=== PATIENT | female | born 1970 | race Caucasian/White ===

== ENCOUNTER 2023-01-23 10:43 | Emergency (ER) | payer OTHER, MEDICARE, SELFPAY ==
--- NOTE | ~2023-01-23 | XR_ITS ---
XR ankle RT min 3V 01/23/2023 11:24 INDICATION: Right ankle pain PROCEDURE: 4 views right ankle COMPARISON: No prior studies for comparison. FINDINGS: Fracture, dislocation or subluxation is not identified. Ankle mortise intact. The soft tiss ues appear within normal limits. No foreign bodies are identified. IMPRESSION: 1: NO ACUTE BONE OR JOINT ABNORMALITY IDENTIFIED. Reviewed, dictated and finalized at location B.
--- NOTE | ~2023-01-23 | XR_ITS ---
XR foot RT min 3V 01/23/2023 11:24 INDICATION: Right foot pain after recent trauma PROCEDURE: 4 views right foot COMPARISON: No prior studies for comparison. FINDINGS: Fracture, dislocation or subluxation is not identified. 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 Lisfranc joint intact. The soft tissues appear within normal limits. No foreign bodies are identified. IMPRESSION: 1: NO ACUTE BONE OR JOINT ABNORMALITY IDENTIFIED. Reviewed, dictated and finalized at location B.
--- NOTE | 2023-01-23 10:57 | ED.LOWEXIN ---
HPI - Extremity Injury (Lower) General Chief Complaint: Extremity Injury, Lower Stated Complaint: right ankle injury Source: patient and RN notes reviewed History of Present Illness HPI Narrative: 52 yo F presents to urgent care with complaints of right ankle pain and right foot pain. Pt states yesterday, she rolled her ankle. Denies any fall during this incident. Pt also reports pain radiating up to her knee and right lateral knee. Pt reports hx of neuropathy and denies any new or worsening numbness or tingling. Pt has been taking her [place] at home with minimal relief. Related Data Home Medications Medication Instructions Recorded Confirmed alprazolam 1 mg tablet mg 01/23/23 atorvastatin 10 mg tablet mg 01/23/23 desvenlafaxine succinate 100 mg mg PO 01/23/23 tablet,extended release 24 hr ezetimibe 10 mg tablet mg 01/23/23 hydrocodone 10 mg-acetaminophen tablet 01/23/23 325 mg tablet zolpidem 6.25 mg tablet,extended mg PO 01/23/23 release,multiphase Allergies Allergy/AdvReac Type Severity Reaction Status Date / Time No Known Allergies Allergy Verified 01/23/23 11:01 Review of Systems Review of Systems: CONSTITUTIONAL: Denies fever, chills, or sweats. EYES: Denies visual changes, redness, or discharge. ENT: Denies otalgia and sore throat CARDIOVASCULAR: Denies chest pain, palpitations, or edema. RESPIRATORY: Denies cough or dyspnea. GASTROINTESTINAL: Denies abdominal pain, nausea, vomiting, or diarrhea. GENITOURINARY: Denies dysuria or hematuria. SKIN: Denies rash or itching. MUSCULOSKELETAL: Right ankle and knee pain NEUROLOGIC: Denies headache, numbness, or weakness. Pertinent positives per HPI. PMF[facility] Comments At the time of my signature, I reviewed and agree with the nursing past medical, surgical, social, and family history. There is no relevant family history pertinent to the patient complaint. Exam Narrative: GENERAL: This is a well-nourished, well-developed patient, in no apparent distress. HEAD: normocephalic, atraumatic. EYES: Sclera clear/white. Vision is grossly intact. EARS: External ears normal, auditory canals clear and without drainage. Hearing grossly intact. NOSE: External nose normal with no obvious nasal discharge, nares without redness, no rhinorrhea. THROAT: Mucous membranes moist, posterior pharynx clear. NECK: Neck supple, non-tender without lymphadenopathy, masses or thyromegaly. CARDIOVASCULAR: Regular rate RESPIRATORY: No respiratory distress SKIN: warm, intact with no suspicious lesions or rash, good texture and turgor. NEURO: awake, alert, and oriented to person, place and time. There were no obvious focal neurologic abnormalities. EXTREMITIES: Edema to right lateral ankle. Tenderness to right lateral ankle and right plantar, mid foot. BACK: Nontender without deformity or crepitance. No flank tenderness. Course Course Level of Care: Express Care Visit Vital Signs Vital signs: Vital Signs Temperature 97.6 F 01/23/23 11:00 Pulse Rate 85 01/23/23 11:00 Respiratory Rate 20 01/23/23 11:00 Blood Pressure 127/86 01/23/23 11:00 Pulse Oximetry 96 01/23/23 11:00 Oxygen Delivery Room Air 01/23/23 11:00 Temperature 97.6 F 01/23/23 11:00 Pulse Rate 85 01/23/23 11:00 Respiratory Rate 20 01/23/23 11:00 Blood Pressure 127/86 01/23/23 11:00 Pulse Oximetry 96 01/23/23 11:00 Oxygen Delivery Room Air 01/23/23 11:00 Reviewed MDM - Extremity Injury (Lower) MDM Narrative Medical decision making narrative: Use the RICE method at home. May take ibuprofen and/or Tylenol if needed. If symptoms persist in 1 week after conservative treatment, follow-up with specialist. Differential Diagnosis Differential diagnosis: Likely ankle sprain and strain, ankle fracture and other (Foot fracture) Imaging Data Radiologist's impression: [facility] [address] [place] [address] XRay Report Sign
[2023-01-23 11:00] VITALS: BP 127/86; PULSE 85; RESP 20; TEMP 36.4; O2SAT 96
== END 2023-01-23 11:50 | disposition home or self-care (01) ==
PROVIDERS: Emergency Provider Nurse Practitioner Family
DX: S93.401A Sprain of unspecified ligament of right ankle, initial encounter (principal); S96.911A Strain of unspecified muscle and tendon at ankle and foot level, right foot, initial encounter; X50.9XXA Other and unspecified overexertion or strenuous movements or postures, initial encounter; E78.00 Pure hypercholesterolemia, unspecified
CPT/HCPCS: 73610; 73630; 99213; G0463

== ENCOUNTER 2023-08-11 10:24 | Emergency (ER) | payer OTHER, MEDICARE, SELFPAY ==
[2023-08-11 10:34] VITALS: BP 116/87; PULSE 88; RESP 16; TEMP 36.6; O2SAT 97
--- NOTE | 2023-08-11 10:44 | ED.URI ---
HPI - URI/Sore Throat General Chief Complaint: Upper Respiratory Infection Stated Complaint: Chest Congestion Time Seen by Provider: 08/11/23 10:35 Source: patient Mode of arrival: ambulatory Limitations: no limitations History of Present Illness HPI Narrative: Moraima is a 53-year-old female patient presenting to the clinic today with complaints chest congestion x5 days. She reports that she has also had some nasal congestion. Denies any fever or chills. Is coughing up some green phlegm. States she is short of breath at times MD elicited complaint: sore throat and nasal congestion Related Data Home Medications Medication Instructions Recorded Confirmed atorvastatin 10 mg tablet 10 mg DIRECTED 01/23/23 08/11/23 ezetimibe 10 mg tablet 10 mg DIRECTED 01/23/23 08/11/23 hydrocodone 10 mg-acetaminophen 1 tablet DIRECTED 01/23/23 08/11/23 325 mg tablet Allergies Allergy/AdvReac Type Severity Reaction Status Date / Time No Known Allergies Allergy Verified 01/23/23 11:01 Review of Systems Review of Systems: Pertinent positives per HPI. Patient denies any fever, chills, rash, headache, visual changes, dizziness, chest pain, palpitations, nausea, vomiting, diarrhea, constipation, abdominal pain, or any urinary issues. [facility] Comments At the time of my signature, I reviewed and agree with the nursing past medical, surgical, social, and family history. There is no relevant family history pertinent to the patient complaint. Exam Narrative: General: Well-developed obese, in no apparent distress Head: Normocephalic, atraumatic Eyes: Pupils equally round and reactive to light bilaterally, EOM intact, sclera and conjunctive clear, no discharge, lids normal Ears: TMs intact and congested, fluid noted behind the left TM, ear canals clear, no drainage, grossly hearing normal. Nose: Nares patent, clear nasal discharge, mild inflammation, no sinus tenderness. Mouth: Oral pharynx without lesions or masses, good dentition, MMM. Neck: Supple, trachea midline, no enlargement of anterior or posterior cervical nodes, no thyroid masses or goiter palpable. Cardio: Regular rate and rhythm, s1 and s2 normal, no murmur appreciated. Resp: Clear to auscultation bilaterally, no rhonchi, rales, wheezing or rubs Course Course Emergency Course: Portions of this record may have been created with voice recognition software. Level of Care: Express Care Visit Vital Signs Vital signs: Vital Signs Temperature 36.6 C 08/11/23 10:34 Pulse Rate 88 08/11/23 10:34 Respiratory Rate 16 08/11/23 10:34 Blood Pressure 116/87 08/11/23 10:34 Pulse Oximetry 97 08/11/23 10:34 Oxygen Delivery Room Air 08/11/23 10:34 Temperature 36.6 C 08/11/23 10:34 Pulse Rate 88 08/11/23 10:34 Respiratory Rate 16 08/11/23 10:34 Blood Pressure 116/87 08/11/23 10:34 Pulse Oximetry 97 08/11/23 10:34 Oxygen Delivery Room Air 08/11/23 10:34 Vital signs reviewed MDM - URI/Sore Throat MDM Narrative Medical decision making narrative: At the time of visit patient is resting comfortably on the exam table. Patient is nontoxic appearing. i suspect patient has URI with serous otitis of the left ear. Prescription for prednisone was sent to the pharmacy and supportive measures were discussed with the patient she voiced understanding of the discharge instructions and agrees to treatment plan. Return precautions reviewed Differential Diagnosis Differential diagnosis: Likely upper respiratory infection, otitis media, sinusitis, viral infection, bronchitis, influenza, pharyngitis and other (COVID) Discharge Plan Discharge Clinical Impression: Upper respiratory infection, Left acute serous otitis media Patient Disposition: Home, Self-Care Condition: Stable Instructions: Antibiotic Form, Upper Respiratory Infection (ED), Fluid In The Ear (Serous Otitis Media) (ED) Additional Instructions: Take prescrip
== END 2023-08-11 10:56 | disposition home or self-care (01) ==
PROVIDERS: Emergency Provider Nurse Practitioner Family
DX: J02.9 Acute pharyngitis, unspecified (principal); H65.02 Acute serous otitis media, left ear; E78.00 Pure hypercholesterolemia, unspecified
CPT/HCPCS: 99213; G0463

== ENCOUNTER 2024-11-05 12:15 | Outpatient (CLI) | payer OTHER, MEDICARE, SELFPAY ==
--- NOTE | ~2024-11-05 | XR_ITS ---
EXAM: XR lumbar spine 2-3V DATE: 11/05/2024 12:37 HISTORY: M47.816 - Spondylosis without myelopathy or radiculopathy... . COMPARISON: None available. FINDINGS: 5 nonrib-bearing lumbar-type vertebral bodies. Uncomplicated appearing L4-5 posterior fusi on hardware, interbody device in good position. Pedicles intact. 2 mm retrolisthesis at L3-4. Mild sc oliosis. Vertebral body heights preserved. Moderate disc space narrowing and marginal osteophytosis a t L1-2 through L3-4, with mild disc disease at L5-S1. Moderate mid and lower lumbar facet hypertrophy and sclerosis. Apparent diffusion or heterotopic bone laterally between the L4-5 transverse process/ facet. No fracture or dislocation. Atherosclerotic aortic and iliac calcifications without evident an eurysm. Incidental note of mild anterior wedge deformity at T11 and T12. IMPRESSION: L4-5 posterior fusion without radiographic evidence of hardware related complication. Moderate multil evel lumbar degenerative disc disease. Moderate multilevel lumbar facet arthropathy. Mild anterior wedge deformity at T11 and T12. Reviewed, dictated and finalized at location [facility] IMPRESSION: L4-5 posterior fusion without radiographic evidence of hardware related complic ation. Moderate multilevel lumbar degenerative disc disease. Moderate multileve l lumbar facet arthropathy. Mild anterior wedge deformity at T11 and T12.
--- OUTSIDE RECORDS SUMMARY | 2024-11-05 14:03 | XMS_ITS | Encounter Summary ---
Author Organization [facility] Health Address [address] [place], [place] [address] [address] Care Team Providers Care Loom Tuner Name Role Phone Cortney Hedrick MD Unavailable Wilmer Li MD Primary Care Provider [phone] Kristi Marvin RN Unavailable [phone] Encounter Details Date Type Department Care Team (Late st Contact Info) Description 09/28/2015 Therapy Visit EXTERNAL NON-[facility] DEPT Unknown, Provider Social History Tobacco Use Types Packs/Day Years Used Date Smoking Tobacco: Former Cigarettes Q uit: 03/11/2011 Smokeless Tobacco: Never Alcohol Use Standard Drinks/Week Comments Yes 2.5 (1 standard drin k = 0.6 oz pure alcohol) mixed drinks approx. 3 per week Sex and Gender Information Value Date Recorded Sex Assigned at Not on file Gender Identity Not on file Sexual Orientation Not on file documented as of this encounter Plan of Treatment Not on file documented as of this encounter Visit Diagnoses Not on filedocumented in this encounter Care Teams Loom Tuner Relationship Specialty Start Date End Date Wilmer Li MD [address] [address] PCP - General Internal Medicine 06/06/12 Cortney Hedrick MD Orthopedic Surgery 06/06/12 Kristi Marvin RN Technology Coordinator 2/17/16 documented as of this encounter
--- OUTSIDE RECORDS SUMMARY | 2024-11-05 14:03 | XMS_ITS | Clinical Summary ---
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 Region Laterality Modality Other Narrative Procedure Note Rudi Morales DO - 09/24/2024 10:11 AM CST [facility] Patient Name: Betzy Briceño Procedure Date: 09/24/2024 10:11 AM Date of : 1970 Admit Type: Outpatient Age: 54 Gender: Female Attending MD: Rudi Morales D.O. Room: [facility] ENDOSCOPY ROOM 2 Note Status: Finalized Patient Profile: Refer to note in patient chart for documentation of history and physical. Procedure: Colonoscopy Indications: Screening for colorectal malignant neoplasm, Last colonoscopy: February 2014 Referring MD: Katrina Sy, F.N.P. Providers: Rudi Morales D.O. Impression: - The examined portion of the ileum was normal. - One 8 mm polyp in the cecum, removed with a hot snare. Resected and retrieved. Clip (MRconditional) was placed. Clip medical laboratory technicians: [place]. - One 3 mm polyp in the descending colon, removedwith a jumbo cold forceps. Resected and retrieved. - Two 2 to 3 mm polyps in the sigmoid colon,removed with a jumbo cold forceps. Resected andretrieved. Recommendation: - Discharge patient to home. - Resume previous diet. - Continue present medications. - Await pathology results. - Repeat colonoscopy in 5 years for surveillance. - Return to primary care physician PRN. Medicines: Monitored Anesthesia Care Complications: No immediate complications. Estimated Blood Loss: Estimated blood loss was minimal. Procedure: Pre-Anesthesia Assessment: - As per anesthesia. The benefits, risks and alternatives of theprocedure and sedation were discussed and informed consentwas obtained. All questions were answered. Please referto the signed informed consent document in the medical record. The bowel preparation used was Miralax and bisacodyl tablets via split dose instruction. The scope was passed under direct vision. The Pediatric Colonoscope [id number] was introducedthrough the anus and advanced to the 5 cm into the ileum.The colonoscopy was performed without difficulty. The patient tolerated the procedure well. The qualityof the bowel preparation was good. The terminal ileum, ileocecal valve, appendiceal orifice, and rectumwere photographed. Findings: The perianal and digital rectal examinations were normal. The terminal ileum appeared normal. An 8 mm polyp was found in the cecum. The polyp was pedunculated. The polyp was removed with a hot snare. Resection and retrieval were complete. To prevent bleeding after the polypectomy, one hemostaticclip was successfully placed (MR conditional). Clip medical laboratory technicians: [place]. There was no bleeding at the end of the procedure. A 3 mm polyp was found in the descending colon. The polyp was removed with a jumbo cold forceps. Resection and retrieval were complete. Two polyps were found in the sigmoid colon. The polyps were 2 to 3 mmin size. These polyps were removed with a jumbo cold forceps. Resectionand retrieval were complete. No additional abnormalities were found on retroflexion. Electronically signed by Rudi Morales M.D. Rudi Morales D.O. 09/24/2024 12:25:29 PM Number of Addenda: 0 Note Initiated On: 09/24/2024 10:11 AM Procedure Code(s): --- Professional --- 90225, Colonoscopy, flexible; with removal of tumor(s), polyp(s), or other lesion(s) by snare technique 27954, 59, Colonoscopy, flexible; with biopsy, single or multiple --- Technical --- 50845, Colonoscopy, flexible; with removal of tumor(s), polyp(s), or other lesion(s) by snare technique 79389, 59, Colonoscopy, flexible; with biopsy, single or multiple Diagnosis Code(s): --- Professional --- Z12.11, Encounter for screening for malignant neoplasm of colon D12.0, Benign neoplasm of cecum D12.4, Benign neoplasm of descending colon D12.5, Benign neoplasm of sigmoid colon --- Technical --- Z12.11, Encounter for screening for malignant neoplasm of colon D12.0, Benign neoplasm of cecum D12.4, Benign neoplasm of descending colon D12.5, Benign neoplasm of sigmoid colon CPT copyright 2020 [employer]. All rights reserved. The codes documented in this report are preliminary and upon cpc coder reviewmay be revised to meet current compliance requirements. Recognized by the [employer] for promoting quality in endoscopy Rudi Morales DO ENDOSCOPY PROCEDURES Final Res ult * Hepatitis C antibody Blood (01/01/2024 12:02 PM CDT) Hep C Ab Nonreactive Nonreactive Comment: Interpretive Data Nonreactive: Antibodies to HCV not detected. Does NOT exclude the possibility of recent exposure to HCV. Equivocal: Equivocal for HCV antibodies. Supplemental molecular testing will be automatically performed to determine infection status in accordance with current CDC screening recommendations. Reactive: Positive for HCV antibodies. This may represent current or past HCV infection. Supplemental molecular testing will be automatically performed to determine current infection status in accordance with current CDC screening recommendations. Interpretive data was last revised on 2019. Blood 01/01/2024 12:0 2 PM CDT 01/01/2024 5:29 PM CDT Maritza Ortega MD LAB MICROBIOLOGY - GENERA L ORDERABLES Final Result [facility] [address] [place] [address] * CT Lung Cancer Screening (08/17/2022 3:19 PM LION TRAINER) Anatomical Region Laterality Modality Chest N/A Computed Tomogra phy 08/18/2022 7:26 AM LION TRAINER Narrative 08/18/2022 7:44 AM LION TRAINER EXAM DESCRIPTION: CT LUNG CANCER SCREENING REASON FOR STUDY: Screening CT of the chest in a former smoker with a 30 pack year smoking history. Additional history: Smoking cessation 4 years ago. Family history of lung cancer. TECHNIQUE: Low dose CT scan of the chest was performed without intravenous contrast using helical scanning technique. The exam extends from the lung apices through the lung bases. Automatic exposure control was used as a dose optimization technique. NOTE: This study was performed for the specific purposes of lung cancer screening and is not an alternative to diagnostic chest CT. RADIATION DOSE: CT dose index volume (CTDIvol) = 2.10 mGy COMPARISON: None available. FINDINGS: SMOKING RELATED LUNG DISEASE: There is mild centrilobular emphysema. LUNG NODULES: There is a 3 mm nodule in the right upper lobe near the apex on axial image 51. A 5 mm nodule is seen in the periphery of the right lower lobe on image 160. No other lung nodules identified. OTHER: There is no focal consolidation. The airways are widely patent. No pleural effusion or pneumothorax. No suspicious lymphadenopathy is seen in the chest. No mediastinal masses. The heart size is normal. No calcified plaques are definitely seen in the coronary arteries on this low-dose exam. There is no pericardial thickening or effusion. The thoracic aorta is minimally atherosclerotic, and normal in caliber. The pulmonary arteries have normal caliber. Low-dose images through the upper abdomen are unremarkable. Examination of bone windows demonstrates no suspicious lytic or blastic lesions. There is diffuse idiopathic skeletal hyperostosis of the lower thoracic spine. IMPRESSION: 1. There is a 5 mm nodule in the periphery of the right lower lobe, which could represent a subpleural lymph node. Also noted is a 3 mm nodule in the right upper lobe near the apex. No other lung nodules are seen. 2. Mild centrilobular emphysema. 3. Other findings as described above. Lung-RADS v1.1 category 2: Benign appearance or behavior. Recommendation: Low dose CT of chest in 12 months. THIS IS AN ELECTRONICALLY VERIFIED FINAL REPORT 08/18/2022 7:44 AM - Electronically signed by Jim Escoto M.D. RL: ANAND Report ID: [id number] Reading Location: [id number] Procedure Note Jim Wells MD - 08/18/2022 EXAM DESCRIPTION: CT LUNG CANCER SCREENING REASON FOR STUDY: Screening CT of the chest in a former smoker with a30 pack year smoking history. Additional history: Smoking cessation 4 yearsago. Family history of lung cancer. TECHNIQUE: Low dose CT scan of the chest was performed without intravenous contrast using helical scanning technique. The exam extends from the lung apices through the lung bases. Automatic exposure control was used as adose optimization technique. NOTE: This study was performed for the specific purposes of lung cancer screening and is not an alternative to diagnostic chest CT. RADIATION DOSE: CT dose index volume (CTDIvol) = 2.10 mGy COMPARISON: None available. FINDINGS: SMOKING RELATED LUNG DISEASE: There is mild centrilobular emphysema. LUNG NODULES: There is a 3 mm nodule in the right upper lobe near theapex on axial image 51. A 5 mm nodule is seen in the periphery of the rightlower lobe on image 160. No other lung nodules identified. OTHER: There is no focal consolidation. The airways are widely patent.No pleural effusion or pneumothorax. No suspicious lymphadenopathy is seenin the chest. No mediastinal masses. The heart size is normal. Nocalcified plaques are definitely seen in the coronary arteries on this low-doseexam. There is no pericardial thickening or effusion. The thoracic aorta is minimally atherosclerotic, and normal in caliber. The pulmonary arterieshave normal caliber. Low-dose images through the upper abdomen areunremarkable. Examination of bone windows demonstrates no suspicious lytic or blastic lesions. There is diffuse idiopathic skeletal hyperostosis of the lower thoracic spine. IMPRESSION: 1. There is a 5 mm nodule in the periphery of the right lower lobe,which could represent a subpleural lymph node. Also noted is a 3 mm nodule inthe right upper lobe near the apex. No other lung nodules are seen. 2. Mild centrilobular emphysema. 3. Other findings as described above. Lung-RADS v1.1 category 2: Benign appearance or behavior. Recommendation: Low dose CT of chest in 12 months. THIS IS AN ELECTRONICALLY VERIFIED FINAL REPORT 08/18/2022 7:44 AM - Electronically signed by Jim Escoto M.D. RL: ANAND Report ID: [id number] Reading Location: [id number] Katrina Sy NP IMG CT PROCEDURES Final Resul t * SCREENING MAMMOGRAM BILATERAL W KENZIE (08/17/2022 3:02 PM LION TRAINER) Anatomical Region Laterality Modality Breast Bilateral Mammography 08/17/2022 3:09 PM LION TRAINER Impressions 08/17/2022 3:09 PM LION TRAINER There is no mammographic evidence of malignancy. A 1 year screening mammogram is recommended. BI-RADS: 2 - Benign. The patient has been or will be contacted. The patient will be entered into a reminder system with a target due date of 1 year for her next mammogram. Electronically signed by: JIM IBRAHIM Narrative 08/17/2022 3:09 PM LION TRAINER EXAMINATION: SCREENING MAMMOGRAM BILATERAL W KENZIE ORDERING HEALTHCARE PROVIDER: KATRINA SY HISTORY: Routine screening mammography. COMPARISON: 04/26/2019, 09/20/2017, 04/13/2015, 01/29/2014. TECHNIQUE: CC and MLO views of both breasts were obtained with digital technique using digital breast tomosynthesis with C view. Computer aided detection was utilized. FINDINGS: DENSITY: The breasts are almost entirely fatty. BREASTS: There are stable postoperative changes of reduction mammoplasty in both breasts. There is also unchanged small benign masses in the upper outer right breast at posterior depth, in close proximity to a biopsy marker clip. There are benign calcifications in the left breast. No new suspicious findings identified in either breast on mammogram. Katrina Sy NP IMG MAMMO PROCEDURES Final Re sult from Last 3 Months or Most Recently Relevant to Health Maintenance Insurance MEDICARE [facility] MEDICARE MEDICARE [employer] Advance Directives For more information, please contact: [phone] * Full Code (Latest Code Status on File) Date Activated Date Inactivated Comments 09/24/2024 10:06 AM 09/24/2024 5:07 PM * Full Code Date Activated Date Inactivated Comments 09/24/2024 10:06 AM 09/24/2024 10:06 AM Care Teams Care Director Rn Relationship Specialty [place] [id number] [address] PCP - General Family Medicine 12/10/19
--- OUTSIDE RECORDS SUMMARY | 2024-11-05 14:03 | XMS_ITS | Encounter Summary ---
Author Organization [facility] Health Address [address] [place], [place] [address] [address] Care Team Providers Care Trouble Shooting Mechanic Name Role Phone Cortney Hedrick MD Unavailable Wilmer Li MD Primary Care Provider Kristi Marvin RN Unavailable [phone] Encounter Details Date Type Department Care Team (Late st Contact Info) Description 09/24/2015 Therapy Visit EXTERNAL NON-[facility] DEPT Unknown, Provider [...] on filedocumented in this encounter Care Teams Trouble Shooting Mechanic Relationship Specialty Start Date End Date Wilmer Li MD [address] [address] PCP - General Internal Medicine 06/06/12 Cortney Hedrick MD Orthopedic Surgery 06/06/12 Kristi Marvin RN Lawn Mower Operator 2/17/16 documented as of this encounter
--- OUTSIDE RECORDS SUMMARY | 2024-11-05 14:03 | XMS_ITS | Clinical Summary ---
Author Organization [facility] [employer] Address [facility] [facility] [place] [address] Care Team Providers Care Boring Machine Operator Double End Name Role Phone Cortney Hedrick MD Unavailable [phone] Wilmer Li MD Primary Care Provider [phone] Kristi Marvin RN Unavailable [phone] [facility],non-owned Affiliates and Associated Physician Practices is amultiple site organization consisting of ambulatory clinics and hospital sitesin [place], [place], [place] and [place]. This disclosure is being madepursuant to the Care Everywhere program and may not contain all information available regarding this patient. Last updated 18.[facility] [employer] Allergies No known active allergies Medications * Be aware that medications may not be up to date on this document. Alwaysverify current medications with the patient. Medication Sig Dispensed Refills Start Date End Date Status ALPRAZolam (XANAX) 1 MG tablet Take 1 mg by mouth 2 times daily Active gabapentin (NEURONTIN) 300 MG capsule Take 1 Cap by mouth 3 times daily. 90 Cap 5 11/19/2012 Active Additional Information Patient taking differently:300 mg Oral4 TIMES DAILY, Reported on 10/16/2015 DESVENLAFAXINE SR 24hr (PRISTIQ) 100 MG tablet Take by mouth once daily Active zolpidem CR (AMBIEN CR) 6.25 MG tablet Take 6.25 mg by mouth at bedtime Active VICTOZA 18 MG/3ML pen Inject subcutaneously once daily 04/06/2016 Active Sennosides (SENNA LAX PO) Pt unsure of dose. Active oxyCODONE-acetamin ophen (PERCOCET) 5-325 MG tablet Take 1-2 Tabs by mouth every 4 hours as needed for Pain 40 Tab 0 05/06/2016 Active Additional Information Patient not taking.Reported on 05/30/2016 cyclobenzaprine (FLEXERIL) 10 MG tablet Take 1 Tab by mouth 3 times daily as needed for Muscle Spasms 42 Tab 0 05/06/2016 Active Additional Information Patient not taking.Reported on 05/30/2016 HYDROcodone-acetam inophen (NORCO) 7.5-325 MG tablet 05/19/2016 Active metaxalone (SKELAXIN) 800 MG tablet 05/21/2016 Active CHANTIX 1 MG tabletIndications: Smoking Cessation Therapy Reasons: Stop Smoking 05/21/2016 Act mayte Active Problems Problem Noted Date Diagnosed Date Genital disorder, female 03/06/2013 Numbness and tingling 03/06/2013 MS (multiple sclerosis) 03/06/2013 Immunizations Name Administration Dates Next Due INFLUENZA VACCINE 11/03/2012 Family History Medical History Relation Name Comments Asthma Brother 3 Diabetes Father Heart Failure Father Arthritis - Rheumatoid Mother Heart Failure Paternal Grandfather Diabetes Paternal Grandmother Relation Name Status Comments Brother 1 Alive Brother 2 Alive Brother 3 Father Alive Mother Alive Paternal Grandfather Paternal Grandmother Sister Alive Social History Tobacco Use Types Packs/Day Years Used Date Smoking Tobacco: Former Cigarettes Q uit: 04/14/2016 Smokeless Tobacco: Never Tobacco Cessation:Counseling Given: Yes Comments:using chantix Alcohol Use Standard Drinks/Week Comments No 3 (1 standard drink = 0.6 oz pure alcohol) mixed drinks approx. 3 per week(STATES NOT DRINKING ANYMORE) Sex and Gender Information Value Date Recorded Sex Assigned at Not on file Gender Identity Not on file Sexual Orientation Not on file Last Filed Vital Signs Vital Sign Reading Time Taken Comments Blood Pressure 111/80 05/07/2016 11:37 AM CDT Pulse 93 05/07/2016 11:37 AM CDT Temperature 36.4 C (97.5 F) 05/07/2016 11:37 AM CDT Respiratory Rate 20 05/07/2016 11:3 7 AM CDT Oxygen Saturation 93% 05/07/2016 11: 37 AM CDT Inhaled Oxygen Concentration - - Weight 74.8 kg (164 lb 14.5 oz) 05/07/2016 3:38 AM CDT Height 154.9 cm (5' 1 ) 05/06/2016 7:39 AM CDT Body Mass Index 31.16 05/06/2016 7:39 AM CDT Plan of Treatment Health Maintenance Due Date Last Done Comments COLOGUARD (AGES 45-75) - COL ON CA SCREENING 1970 COLON MONITORING 1968 COLONOSCOPY - COLON CA SCREENING 1968 CT COLONOGRAPHY - COLON CA SCREENING 1970 Colorectal Cancer Screening 1970 FIT - COLON CA SCREENING 1968 FLEX SIG - COLON CA SCREENING 1968 LIPID TESTING 1970 MAMMOGRAM 1970 MEDICARE AWV 12 MONTHS 1968 HIV SCREENING 1983 HEPATITIS C SCREENING 02/25/1986 DTAP/TDAP/TD VACCINES (1 - Tdap) 1987 HEPATITIS B VACCINE (1 of 3 - 19+ 3-dose series) 1987 PNEUMOCOCCAL VACCINE 50+ (1 of 1 - PCV) 2018 ZOSTER VACCINE (1 of 2) 2018 COVID-19 VACCINE (1 - 2023-2 5 season) 2024 INFLUENZA VACCINE (#1) 2024 5, 07/15/2014, 11/03/2012 DEPRESSION SCREENING 09/11/2024 HIB VACCINE Aged Out No longer eligi ble based on patient's age to complete this topic HPV VACCINE Aged Out No longer eligi ble based on patient's age to complete this topic MENINGOCOCCAL (Group B) VACCINE Aged Out No longer eligible b ased on patient's age to complete this topic MENINGOCOCCAL VACCINE Aged Out No murphy bernardo eligible based on patient's age to complete this topic PNEUMOCOCCAL VACCINE Aged Out No long er eligible based on patient's age to complete this topic Medical Devices Implanted Type Area Outpatient Scheduler Device Identifier Shelf Expiration Date Model / Serial / Lot Putty Dbm Progenix 5cc Implanted:Qty: 1 on 10/27/2015 by Martin Dahl MD at [facility] Spine Lumbar Spinal [employer] 04/24/2017 [id number] / / [id number] Bone Canc Crush 15cc Implanted:Qty: 1 on 10/27/2015 by Martin Dahl MD at [facility] Spine Lumbar [employer] 05/04/2020 [id number] / / [id number] Corelink Locking Nuts Implanted:Qty: 4 on 10/27/2015 by Martin Dahl MD at [facility] Spine Lumbar [id number] / / Corelink Connectors Implanted:Qty: 4 on 10/27/2015 by Martin Dahl MD at [facility] Spine Lumbar [id number] / / Corelink 6.5 X 45 Screw Implanted:Qty: 4 on 10/27/2015 by Martin Dahl MD at [facility] Spine Lumbar [id number] / / Corelink 8mm Cage Implanted:Qty: 1 on 10/27/2015 by Martin Dahl MD at [facility] Spine Lumbar [id number] / / Corelink Curved Saravanan 45mm Implanted:Qty: 2 on 10/27/2015 by Martin Dahl MD at [facility] Spine Lumbar [id number] / / Putty Grft Bone Dbm Progenix 1cc Implanted:Qty: 1 on 05/06/2016 by Martin Dahl MD at [facility] Spine Cervical Spinal [employer] 11/11/2017 [id number] / / [id number] Cage Cerv [place]/C Sys 12 X 12mm Implanted:Qty: 1 on 05/06/2016 by Martin Dahl MD at [facility] Spine Cervical [employer] 05/12/2016 [id number] / / [id number] Description:Plate and screws removed from uuppr level Advance Directives * Full Code (Latest Code Status on File) Date Activated Date Inactivated Comments 05/06/2016 3:36 PM 05/07/2016 3:27 PM * Full Code Date Activated Date Inactivated Comments 10/27/2015 1:10 PM 10/29/2015 12:53 PM * FULL RESUSCITATION Date Activated Date Inactivated Comments 11/02/2012 11:09 AM 11/03/2012 11:42 AM Care Teams Boring Machine Operator Double End Relationship Specialty Start Date End Date Wilmer Li MD [address] [address] PCP - General Internal Medicine 06/06/12 Cortney Hedrick MD Orthopedic Surgery 06/06/12 Kristi Marvin, RN Rotary Filter Operator 10/28/15
--- OUTSIDE RECORDS SUMMARY | 2024-11-05 14:03 | XMS_ITS | Clinical Summary ---
Author Organization [facility] Address [address] [place] [phone] Phone Care Team Providers Care Development Geologist Name Role Phone Provider, None Primary Care Provider Unavailabl e Allergies No known active allergies Medications ALPRAZolam (XANAX) 0.5 MG Tablet 05/23/2024 Active atorvastatin (LIPITOR) 10 MG Tablet 05/22/2024 Active bisacodyl 5 MG Tablet Delayed Response 05/22/2024 Active Desvenlafaxine Succinate 100 MG TABLET SR 24 HR 05/22/2024 Active ergocalciferol (VITAMIN D) 55336 UNIT Capsule TAKE 1 CAPSULE BY MOUTH 1 TIME A WEEK 05/22/2024 Active HYDROcodone-emmy taminophen (NORCO) 10-325 MG Tablet TAKE 1 TABLET BY MOUTH EVERY 12 HOURS NEEDED FOR PAIN 05/23/2024 Active ketorolac (TORADOL) 10 MG Tablet 06/06/2024 Active zolpidem (AMBIEN CR) 6.25 MG Tablet Controlled Release 05/23/2024 Active Active Problems No known active problems Social History Tobacco Use Types Packs/Day Years Used Date Smoking Tobacco: Former Cigarettes Smokeless Tobacco: Never Comments No Sex and Gender Information Value Date Recorded Sex Assigned at Not on file Legal Sex Female 8:11 PM CDT Gender Identity Not on file Sexual Orientation Not on file Last Filed Vital Signs Vital Sign Reading Time Taken Comments Blood Pressure 104/58 06/12/2024 11:23 AM CDT Pulse 82 06/12/2024 11:23 AM CDT Temperature 36.2 C (97.2 F) 06/12/2024 11:23 AM CDT Respiratory Rate 20 06/12/2024 11:23 AM CDT Oxygen Saturation 98% 06/12/2024 11:23 AM CDT Inhaled Oxygen Concentration - - Weight - - Height - - Body Mass Index - - Plan of Treatment Health Maintenance Due Date Last Done Comments Hepatitis C Virus (HCV) Screening 1968 Hepatitis B Immunization (1 of 3 - 19+ 3-dose series) 1987 Colonoscopy 2013 Colorectal Cancer Screening 2013 Cologuard 2018 Immunochemical Fecal Occult Blood 2018 Mammogram 2018 Pneumococcal Immunization (5 0+ years) (1 of 1 - PCV) 2018 Zoster Immunization (1 of 2) 2018 Influenza Immunization (#1) 05/12/202401/2020, 11/03/2012 SARS-COV-2 Immunization (1 - 2023- season) 2024 Respiratory Syncytial Virus (RSV) Immunization (Adult) (1 - 1-dose 75+ series) 2043 TdaP Immunization Completed 02/14/2019 Meningococcal Immunization (ACWY) Aged Out No longer eligible b ased on patient's age to complete this topic Pneumococcal Immunization Combined Aged Out No longer eligible b ased on patient's age to complete this topic Rotavirus Immunization Aged Out No lo nger eligible based on patient's age to complete this topic Insurance CIG Care Teams Development Geologist Relationship Specialty Start Date End Date Provider, None [place] PCP - General 06/12/24
--- OUTSIDE RECORDS SUMMARY | 2024-11-05 14:03 | XMS_ITS | Encounter Summary ---
Author Organization [facility] Health Address [address] [place], [place] [address] [address] Care Team Providers Care Lab Aid Name Role Phone Cortney Hedrick MD Unavailable [phone] Wilmer Li MD Primary Care Provider [phone] Kristi Marvin RN Unavailable [phone] Encounter Details Date Type Department Care Team (Late st Contact Info) Description 10/08/2015 [facility] Unknown, Provider Social History Tobacco Use Types Packs/Day Years Used Date Smoking Tobacco: Former Cigarettes Q uit: 09/24/2015 Smokeless Tobacco: Never Comments:quit with chantix p er scodary 09/24/15 Alcohol Use Standard Drinks/Week Comments Yes 3 (1 standard drink = 0.6 oz [...] on filedocumented in this encounter Care Teams Lab Aid Relationship Specialty Start Date End Date Wilmer Li MD [address] [address] PCP - General Internal Medicine 06/06/12 Cortney Hedrick MD Orthopedic Surgery 06/06/12 Kristi Marvin, RN Machine Designer 10/28/15 documented as of this encounter
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
--- OUTSIDE RECORDS SUMMARY | 2024-11-05 14:03 | XMS_ITS | Patient Health Summary ---
Author Organization [facility] Address [facility] [facility] [place] [address] Care Team Providers Care Openstack Cloud Consulting Architect Name Role Phone Cortney Hedrick MD Unavailable Wilmer Li MD Primary Care Provider Kristi Marvin RN Unavailable [phone] Note from [facility],non-owned Affiliates and Associated Physician Practices is amultiple site organization consisting of ambulatory clinics and hospital sitesin [place], [place], [place] and [place]. This disclosure is being madepursuant to the Care Everywhere program and may not contain all information available regarding this patient. Last updated 18.[facility] Allergies No known active allergies Medications * Be aware that medications may not be up to date on this document. Alwaysverify current medications with the patient. * ALPRAZolam (XANAX) 1 MG tablet Take 1 mg by mouth 2 times daily * gabapentin (NEURONTIN) 300 MG capsule(Started 11/19/2012) Take 1 Cap by mouth 3 times daily. 5 refills left * DESVENLAFAXINE SR 24hr (PRISTIQ) 100 MG tablet Take by mouth once daily * zolpidem CR (AMBIEN CR) 6.25 MG tablet Take 6.25 mg by mouth at bedtime * VICTOZA 18 MG/3ML pen(Started 04/06/2016) Inject subcutaneously once daily * Sennosides (SENNA LAX PO) Pt unsure of dose. * oxyCODONE-acetaminophen (PERCOCET) 5-325 MG tablet(Started 05/06/2016) Take 1-2 Tabs by mouth every 4 hours as needed for Pain * cyclobenzaprine (FLEXERIL) 10 MG tablet(Started 05/06/2016) Take 1 Tab by mouth 3 times daily as needed for Muscle Spasms * HYDROcodone-acetaminophen (NORCO) 7.5-325 MG tablet(Started 05/19/2016) * metaxalone (SKELAXIN) 800 MG tablet(Started 05/21/2016) * CHANTIX 1 MG tablet(Started 05/21/2016) Reasons: Stop Smoking Active Problems Problem Noted Date Diagnosed Date Genital disorder, female 03/06/2013 Numbness and tingling 03/06/2013 MS (multiple sclerosis) 03/06/2013 Immunizations * INFLUENZA VACCINE(Given 11/03/2012) Social History Tobacco Use Types Packs/Day Years [...] Mass Index 31.16 05/06/2016 7:39 AM CDT Medical Devices Implanted Type Area Physician Surgeon Device Identifier Shelf Expiration Date Model / Serial / Lot Putty Dbm Progenix 5cc Implanted:Qty: 1 on 10/27/2015 by Martin Dahl MD at [facility] Spine Lumbar Spinal [employer] 04/24/2017 [id number] / / [id number] Bone Canc Crush 15cc Implanted:Qty: 1 on 10/27/2015 by Martin Dahl MD at [facility] Spine Lumbar [employer] 05/04/2020 [id number] / / [id number] Corelink Locking Nuts Implanted:Qty: 4 on 10/27/2015 by Martin Dahl MD at [facility] Spine Lumbar [id number] / / Corelink Connectors Implanted:Qty: 4 on 10/27/2015 by Martin Dahl MD at [facility] Spine Lumbar [id number] / / Corelink 6.5 X 45 Screw Implanted:Qty: 4 on 10/27/2015 by Martin Dahl MD at [facility] Spine Lumbar [id number] / / Corelink 8mm Cage Implanted:Qty: 1 on 10/27/2015 by Martin Dahl MD at [facility] Spine Lumbar [id number] / / Corelink Curved Saravanan 45mm Implanted:Qty: 2 on 10/27/2015 by Martin Dahl MD at [facility] Spine Lumbar [id number] / / Putty Grft Bone Dbm Progenix 1cc Implanted:Qty: 1 on 05/06/2016 by Martin Dahl MD at [facility] Spine Cervical Spinal [employer] 11/11/2017 [id number] / / [id number] Cage Cerv [place]/C Sys 12 X 12mm Implanted:Qty: 1 on 05/06/2016 by Martin Dahl MD at [facility] Spine Cervical [employer] 05/12/2016 [id number] / / [id number] Description:Plate and screws removed from uuppr level Procedures * LAB RESULTS ORDER(Performed 10/12/2018) * MRI CERVICAL SPINE WO CONTRAST(Performed 10/31/2017) Performed for Cervical disc disease * MRI LUMBAR SPINE WO CONTRAST(Performed 10/31/2017) Performed for Lumbar disc disease * EMG WITH NERVE CONDUCTION STUDY(Performed 06/27/2016) Performed for Status post cervical spinal fusion, Pain of both shoulder joints, Numbness in both hands * MRI CERVICAL SPINE WO CONTRAST(Performed 06/17/2016) Performed for Dysphagia, unspecified type, Status post cervical spinal fusion, Neck pain * XR CERVICAL SPINE 2 OR 3VW(Performed 06/14/2016) Performed for Dysphagia, unspecified type, Status post cervical spinal fusion, Numbness and tingling in left hand * XR CERVICAL SPINE 2 OR 3VW(Performed 05/20/2016) Performed for Status post cervical spinal fusion, Pain in both upper extremities * APHERESIS/TRANSFUSION ORDER(Performed 05/09/2016) * GLUCOSE - POINT OF CARE(Performed 05/06/2016) * XR CERVICAL SPINE 1VW(Performed 05/06/2016) Performed for Back pain, unspecified back location, unspecified back pain laterality, unspecified chronicity * XR CERVICAL SPINE 1VW(Performed 05/06/2016) Performed for Back pain, unspecified back location, unspecified back pain laterality, unspecified chronicity * DISCECTOMY WITH FUSION ANTERIOR CERVICAL (ACDF) MICROSCOPIC(Performed 05/06/2016) * TYPE + SCREEN PANEL(Performed 04/28/2016) Performed for Preop examination * HGB HCT PANEL(Performed 04/28/2016) Performed for Preop examination * CULTURE MSSA/MRSA(Performed 04/28/2016) Performed for Preop examination * MRI CERVICAL SPINE WO CONTRAST(Performed 04/06/2016) Performed for Neck pain * XR LUMBAR SPINE 2 OR 3VW(Performed 04/06/2016) Performed for Acute midline low back pain without sciatica, History of lumbar fusion * XR LUMBAR SP FLEX EXT 2 OR 3VW(Performed 04/06/2016) Performed for Acute midline low back pain without sciatica, History of lumbar fusion * XR LUMBAR SP FLEX EXT 2 OR 3VW(Performed 02/22/2016) Performed for Chronic low back pain with bilateral sciatica, unspecified back pain laterality, Status post lumbar spinal fusion * XR LUMBAR SPINE 2 OR 3VW(Performed 12/24/2015) Performed for Spinal stenosis of lumbosacral region, Status post cervical spinal fusion * EMG(Performed 10/30/2015) * APHERESIS/TRANSFUSION ORDER(Performed 10/30/2015) * PT EVAL AND TREAT(Performed 10/28/2015) * XR LUMBAR SPINE 2 OR 3VW(Performed 10/28/2015) Performed for Low back pain, unspecified back pain laterality, with sciatica presence unspecified, Genital disorder, female, Numbness and tingling, MS (multiple sclerosis) ([facility]) * FL PONCHO SURGERY LESS 60 MIN(Performed 10/27/2015) Performed for Low back pain, unspecified back pain laterality, with sciatica presence unspecified * FUSION TRANSFORAMINAL LUMBAR INTERBODY (TLIF)(Performed 10/27/2015) * TYPE + SCREEN PANEL(Performed 10/16/2015) Performed for Preop examination * HGB HCT PANEL(Performed 10/16/2015) Performed for Preop examination * CULTURE MSSA/MRSA(Performed 10/16/2015) Performed for Preop examination * IMAGING/RADIOLOGY/XRAY RESULTS ORDER(Performed 08/17/2015) * IMAGING/RADIOLOGY/XRAY RESULTS ORDER(Performed 05/11/2015) * MRI CERVICAL SPINE WO CONTRAST(Performed 06/13/2013) Performed for Pain in limb, Cervicalgia * CULTURE CSF+GRAM STAIN (BEAKER)(Performed 03/22/2013) Performed for Multiple sclerosis (HCC) * CYTOLOGY NON-CREDIT OPERATIONS PROCESSOR PANEL (STL)(Performed 03/15/2013) Performed for Multiple sclerosis ([facility]) * VDRL CSF(Performed 03/15/2013) Performed for Multiple sclerosis (HCC) * CRYPTOCOCCUS ANTIGEN CSF(Performed 03/15/2013) Performed for Multiple sclerosis (HCC) * CULTURE FUNGUS OTHER+FUNGUS SMEAR(Performed 03/15/2013) Performed for Multiple sclerosis (HCC) * CULTURE AFB+SMEAR(Performed 03/15/2013) Performed for Multiple sclerosis (HCC) * CELL COUNT W DIFFERENTIAL CSF(Performed 03/15/2013) Performed for Multiple sclerosis (HCC) * CELL COUNT W DIFFERENTIAL CSF(Performed 03/15/2013) Performed for Multiple sclerosis (HCC) * GLUCOSE CSF(Performed 03/15/2013) Performed for Multiple sclerosis (HCC) * PROTEIN CSF(Performed 03/15/2013) Performed for Multiple sclerosis (HCC) * GRAM STAIN (LAB ORDERED)(Performed 03/15/2013) Performed for Multiple sclerosis ([facility]) * CULTURE CSF+GRAM STAIN(Performed 03/15/2013) Performed for Multiple sclerosis ([facility]) * FL LUMBAR PUNCTURE(Performed 03/15/2013) Performed for Multiple sclerosis (HCC) * OLIGOCLONAL BANDS CSF+BLOOD PANEL(Performed 03/15/2013) Performed for Multiple sclerosis (HCC) * MRI PELVIS WWO CONTRAST(Performed 03/12/2013) Performed for Genital disorder, female * MRI BRAIN WO CONTRAST(Performed 03/12/2013) Performed for MS (multiple sclerosis) ([facility]) * IMMUNOFIXATION BLOOD(Performed 03/06/2013) Performed for MS (multiple sclerosis) ([facility]), Numbness and tingling * VITAMIN B12 FOLATE PANEL(Performed 03/06/2013) Performed for MS (multiple sclerosis) ([facility]), Numbness and tingling * RPR W REFLEX CONFIRM(Performed 03/06/2013) Performed for MS (multiple sclerosis) ([facility]), Numbness and tingling * PROTEIN ELECTROPHORESIS BLOOD(Performed 03/06/2013) Performed for MS (multiple sclerosis) ([facility]), Numbness and tingling * RIVER BLOOD SCREEN W/REFLEX TITER(Performed 03/06/2013) Performed for MS (multiple sclerosis) ([facility]), Numbness and tingling * NERVE CONDUCTION TEST(Performed 03/06/2013) Performed for Numbness and tingling * LAB RESULTS ORDER(Performed 11/05/2012) * XR CERVICAL SPINE 1VW(Performed 11/02/2012) Performed for Neck pain * XR CERVICAL SPINE 1VW(Performed 11/02/2012) Performed for Neck pain * CULTURE MSSA/MRSA(Performed 10/29/2012) Performed for Preoperative examination, unspecified * TYPE + SCREEN PANEL(Performed 10/29/2012) Performed for Preoperative examination, unspecified * IMAGING/RADIOLOGY/XRAY RESULTS ORDER(Performed 10/29/2012) * IMAGING/RADIOLOGY/XRAY RESULTS ORDER(Performed 09/14/2012) * XR CERVICAL SPINE 2 OR 3VW(Performed 06/06/2012) Performed for Cervicalgia * XR SHOULDER RIGHT 2VW OR MORE(Performed 06/06/2012) Performed for Pain in joint, shoulder region Results * LAB RESULTS ORDER (10/12/2018 6:00 PM HOOKER INSPECTOR) Only the most recent of2 resultswithin the time period is included. Narrative 10/12/2018 6:00 PM HOOKER INSPECTOR Ordered by an unspecified provider. Scanned Document LAB - THERAPEUTIC DR WHITE MONITORING ORDERABLES * MRI CERVICAL SPINE WO CONTRAST (10/31/2017 3:34 PM HOOKER INSPECTOR) Only the most recent of4 resultswithin the time period is included. Anatomical Region Laterality Modality Pelvis Magnetic Resonan ce 10/31/2017 4:04 PM HOOKER INSPECTOR Impressions 10/31/2017 4:21 PM HOOKER INSPECTOR STABLE MILD TO MODERATE RIGHT FORAMINAL STENOSIS AT C5-C6. STABLE MILD RIGHT FORAMINAL STENOSIS AT C6-C7. STABLE MYELOMALACIA WITHIN THE CERVICAL SPINAL CORD AT C6-C7. NO NEW FINDINGS SINCE THE PRIOR EXAM. Edited by Adilene Ruano on 10/31/2017 4:13 PM Narrative 10/31/2017 4:21 PM HOOKER INSPECTOR MRI CERVICAL SPINE WITHOUT CONTRAST CLINICAL INDICATION: Cervical radiculopathy, severe neck pain. COMPARISON: MRI cervical spine 06/17/2016. TECHNIQUE: Multiplanar, multisequence MR imaging of the cervical spine was performed without contrast. FINDINGS: There is redemonstration of prior cervical fusion spanning from C5 to C7. There is stable slight reversal of the normal cervical lordosis. There is redemonstration of focal myelomalacia within the cervical spinal cord at C6-C7. There are no other sites of abnormal signal within the cervical spinal cord. There is mild Modic marrow edema at C7. Vertebral body height is within normal limits. C2-C3: No canal or foraminal stenosis. C3-C4: Mild left facet hypertrophy. No canal or foraminal stenosis. C4-C5: Mild right uncovertebral joint hypertrophy. Minimal disc bulge. No canal or foraminal stenosis. C5-C6: Mild to moderate right foraminal stenosis secondary to uncovertebral joint hypertrophy. No canal stenosis. No interval change. C6-C7: Mild disc osteophyte bulge eccentric to the right. Mild right foraminal stenosis. No canal stenosis. No interval change. C7-T1: No canal or foraminal stenosis. T1-T2: No canal or foraminal stenosis. Procedure Note Sushma May MD - 10/31/2017 MRI CERVICAL SPINE WITHOUT CONTRAST CLINICAL INDICATION: Cervical radiculopathy, severe neck pain. COMPARISON: MRI cervical spine 06/17/2016. TECHNIQUE: Multiplanar, multisequence MR imaging of the cervical spine was performed without contrast. FINDINGS: There is redemonstration of prior cervical fusion spanning from C5 to C7. There is stable slight reversal of the normal cervical lordosis. There is redemonstration of focal myelomalacia within the cervical spinal cord at C6-C7. There are no other sites of abnormal signal within the cervical spinal cord. There is mild Modic marrow edema at C7. Vertebral body height is within normal limits. C2-C3: No canal or foraminal stenosis. C3-C4: Mild left facet hypertrophy. No canal or foraminal stenosis. C4-C5: Mild right uncovertebral joint hypertrophy. Minimal disc bulge. No canal or foraminal stenosis. C5-C6: Mild to moderate right foraminal stenosis secondary to uncovertebral joint hypertrophy. No canal stenosis. No interval change. C6-C7: Mild disc osteophyte bulge eccentric to the right. Mild right foraminal stenosis. No canal stenosis. No interval change. C7-T1: No canal or foraminal stenosis. T1-T2: No canal or foraminal stenosis. IMPRESSION STABLE MILD TO MODERATE RIGHT FORAMINAL STENOSIS AT C5-C6. STABLE MILD RIGHT FORAMINAL STENOSIS AT C6-C7. STABLE MYELOMALACIA WITHIN THE CERVICAL SPINAL CORD AT C6-C7. NO NEW FINDINGS SINCE THE PRIOR EXAM. Edited by Adilene Ruano on 10/31/2017 4:13 PM Wilmer Li MD MR ORDERABLES * MRI LUMBAR SPINE WO CONTRAST (10/31/2017 3:08 PM HOOKER INSPECTOR) Anatomical Region Laterality Modality Spine Magnetic Resonan ce 10/31/2017 4:01 PM HOOKER INSPECTOR Impressions 10/31/2017 4:11 PM HOOKER INSPECTOR MODERATE LEFT AND MILD RIGHT FORAMINAL STENOSIS AT L3-L4. Edited by Adilene Ruano on 10/31/2017 4:10 PM Narrative 10/31/2017 4:11 PM HOOKER INSPECTOR MRI LUMBAR SPINE WITHOUT CONTRAST CLINICAL INDICATION: Severe low back pain. Intense lumbar spine pain with radiating pain into the bilateral lower extremities. COMPARISON: Lumbar spine x-ray series 04/06/2016. TECHNIQUE: Multiplanar, multisequence MR imaging of the lumbar spine was performed without contrast. FINDINGS: There has been prior bilateral transpedicular and interbody cage fusion at L4-L5. The lumbar spine is in anatomic alignment. Vertebral body height and bone marrow signal are within normal limits. The conus medullaris terminates at T12-L1. L1-L2: No canal, lateral recess, or foraminal stenosis. L2-L3: Minimal disc bulge. Mild right facet hypertrophy. No canal, lateral recess, or foraminal stenosis. L3-L4: Mild annular bulge. Mild facet hypertrophy. Moderate left and mild right foraminal stenosis. No canal or lateral recess stenosis. L4-L5: No canal, lateral recess, or foraminal stenosis. L5-S1: No canal, lateral recess, or foraminal stenosis. Procedure Note Sushma May MD - 10/31/2017 MRI LUMBAR SPINE WITHOUT CONTRAST CLINICAL INDICATION: Severe low back pain. Intense lumbar spine pain with radiating pain into the bilateral lower extremities. COMPARISON: Lumbar spine x-ray series 04/06/2016. TECHNIQUE: Multiplanar, multisequence MR imaging of the lumbar spine was performed without contrast. FINDINGS: There has been prior bilateral transpedicular and interbody cage fusion at L4-L5. The lumbar spine is in anatomic alignment. Vertebral body height and bone marrow signal are within normal limits. The conus medullaris terminates at T12-L1. L1-L2: No canal, lateral recess, or foraminal stenosis. L2-L3: Minimal disc bulge. Mild right facet hypertrophy. No canal, lateral recess, or foraminal stenosis. L3-L4: Mild annular bulge. Mild facet hypertrophy. Moderate left and mild right foraminal stenosis. No canal or lateral recess stenosis. L4-L5: No canal, lateral recess, or foraminal stenosis. L5-S1: No canal, lateral recess, or foraminal stenosis. IMPRESSION MODERATE LEFT AND MILD RIGHT FORAMINAL STENOSIS AT L3-L4. Edited by Adilene Ruano on 10/31/2017 4:10 PM Wilmer Li MD MR ORDERABLES * EMG WITH NERVE CONDUCTION STUDY (06/27/2016) Martin Dahl MD NEUROLOGY ORDER [facility] RESULT SCAN * XR CERVICAL SPINE 2 OR 3 VW (06/14/2016 2:44 PM CDT) Only the most recent of3 resultswithin the time period is included. Anatomical Region Laterality Modality Spine Radiographic Hailey ging 06/14/2016 2:45 PM CDT Narrative 06/14/2016 2:46 PM CDT THREE-VIEW CERVICAL SPINE Indication: Cervicalgia Findings: Comparison is made with the previous study dated 05/20/2016. Again, there is a C5-C6 interbody fusion device present. There is reversal of normal cervical lordosis. The orientation is similar to the prior study. There is no new compression or osseous destruction. There is no predental or prevertebral soft tissue swelling. Procedure Note Jason De Paz MD - 06/14/2016 THREE-VIEW CERVICAL SPINE Indication: Cervicalgia Findings: Comparison is made with the previous study dated 05/20/2016. Again, there is a C5-C6 interbody fusion device present. There is reversal of normal cervical lordosis. The orientation is similar to the prior study. There is no new compression or osseous destruction. There is no predental or prevertebral soft tissue swelling. Martin Dahl MD DIAGNOSTIC IMAG ING ORDERABLES * APHERESIS/TRANSFUSION ORDER (05/09/2016 8:48 PM CDT) Only the most recent of2 resultswithin the time period is included. Narrative 05/09/2016 8:48 PM CDT Ordered by an unspecified provider. Scanned Document NURSING - VITAL SIGN S AND ASSESSMENT * GLUCOSE - POINT OF CARE (05/06/2016 12:15 PM CDT) Glucose WB/POC 93 70 - 106 mg/dL 05/06/2016 12:59 PM CDT [facility] Blood BLOOD SPECIMEN / Unknown 05/06/2016 12:15 PM CDT 05/06/2016 12:59 PM CDT Martin Dahl MD LAB - POINT OF CARE ORDERABLES [facility] [address] [place] [address] * XR CERV SPINE SINGLE VIEW (05/06/2016 10:05 AM CDT) Only the most recent of4 resultswithin the time period is included. Anatomical Region Laterality Modality Spine Radiographic Hailey ging 05/06/2016 11:0 6 AM CDT Narrative 05/06/2016 11:39 AM CDT CERVICAL SPINE SINGLE VIEW INDICATION: ACDF C5-6. Screw placement. FINDINGS: A single crosstable lateral view of the cervical spine is submitted. This demonstrates an osteometallic disc cage at the C5-6 vertebral level. Screw and plate fixation device has been removed. Endotracheal tube is in place with tip not visualized. Edited by Agatha Bernal on 05/06/2016 11:10 AM Procedure Note Wilda Jimenez MD - 05/06/2016 CERVICAL SPINE SINGLE VIEW INDICATION: ACDF C5-6. Screw placement. FINDINGS: A single crosstable lateral view of the cervical spine is submitted. This demonstrates an osteometallic disc cage at the C5-6 vertebral level. Screw and plate fixation device has been removed. Endotracheal tube is in place with tip not visualized. Edited by Agatha Bernal on 05/06/2016 11:10 AM Martin Dahl MD DIAGNOSTIC IMAG ING ORDERABLES * CULTURE MSSA/MRSA (04/28/2016 3:03 PM CDT) Only the most recent of3 resultswithin the time period is included. Culture Negative for MRSA/MSSA EDWIN 04/30/2016 6:02 AM CDT [facility] MICROBIOLOGY Microbiology SPECIMEN FROM NASAL FOSSAE / Unknown 04/28/2016 3:03 PM CDT 04/28/2016 3:40 PM CDT Martin Dahl MD LAB - MICROBIOL OGY ORDERABLES [facility] MICROBIOLOGY [address] [place] [address], [facility] [phone] * TYPE + SCREEN PANEL (04/28/2016 3:03 PM CDT) Only the most recent of3 resultswithin the time period is included. ABO O 04/28/2016 5:16 PM CDT [facility] Rh Type Positive 04/28/2016 5:16 PM CDT [facility] Antibody Screen Negative 04/28/2016 5:16 PM CDT [facility] Miscellaneous samples (specimen) BLOOD SPECIMEN / Unknown 04/28/2016 3:03 PM CDT 04/28/2016 3:40 PM CDT Martin Dahl MD LAB - BLOOD BAN K ORDERABLES Performing Organization Address [facility] Co de Phone Number [facility] [id number] * HGB HCT PANEL (04/28/2016 3:03 PM CDT) Only the most recent of2 resultswithin the time period is included. Hemoglobin 14.6 12.0 - 15.6 gm/dL 04/28/2016 3:43 PM CDT [facility] Hematocrit 42.3 35.9 - 45.5 % 04/28/2016 3:43 PM CDT [facility] Blood BLOOD SPECIMEN / Unknown 04/28/2016 3:03 PM CDT 04/28/2016 3:40 PM CDT Martin Dahl MD LAB - HEMATOLOG Y ORDERABLES Performing Organization Address [facility] de Phone Number [facility] [id number] [place] [address] * XR LUMBAR SPINE FLEX/EXT 2 VIEW (04/06/2016 10:20 AM CDT) Only the most recent of2 resultswithin the time period is included. Anatomical Region Laterality Modality Spine Radiographic Hailey ging 04/06/2016 10:4 0 AM CDT Narrative 04/06/2016 10:41 AM CDT Flexion and extension views of the lumbar spine HISTORY: Low back pain after fall FINDINGS: There has been prior posterior decompression fusion at L4-5. There is no evidence of instability with flexion or extension. Procedure Note Moraima Xavier MD - 04/06/2016 Flexion and extension views of the lumbar spine HISTORY: Low back pain after fall FINDINGS: There has been prior posterior decompression fusion at L4-5. There is no evidence of instability with flexion or extension. Martin Dahl MD DIAGNOSTIC IMAG ING ORDERABLES * XR LUMBAR SPINE 2 OR 3 VW (04/06/2016 10:20 AM CDT) Only the most recent of3 resultswithin the time period is included. Anatomical Region Laterality Modality Spine Radiographic Hailey ging 04/06/2016 10:3 7 AM CDT Impressions 04/06/2016 10:38 AM CDT Intact L4-5 posterior spinal fusion hardware. No acute fracture or malalignment. Narrative 04/06/2016 10:38 AM CDT Lumbosacral Spine 3 Views INDICATION: Fall. Back pain. COMPARISON: February 22, 2016. FINDINGS: Status post posterior spinal fusion and decompression at L4-5. A disc device is seen at the intervening level. Hardware is stable in position and no acute fracture or malalignment is seen. Mild disc disease in the upper lumbar spine is redemonstrated. There is no bony destructive process. Procedure Note Nilesh Bautista MD - 04/06/2016 Lumbosacral Spine 3 Views INDICATION: Fall. Back pain. COMPARISON: February 22, 2016. FINDINGS: Status post posterior spinal fusion and decompression at L4-5. A disc device is seen at the intervening level. Hardware is stable in position and no acute fracture or malalignment is seen. Mild disc disease in the upper lumbar spine is redemonstrated. There is no bony destructive process. IMPRESSION Intact L4-5 posterior spinal fusion hardware. No acute fracture or malalignment. Martin Dahl MD DIAGNOSTIC IMAG ING ORDERABLES * EMG (10/30/2015 9:30 PM HOOKER INSPECTOR) Narrative 10/30/2015 9:30 PM HOOKER INSPECTOR Ordered by an unspecified provider. Scanned Document NEUROLOGY ORDERABLES * FL PONCHO SURGERY LESS 60 MIN (10/27/2015 10:27 AM HOOKER INSPECTOR) Anatomical Region Laterality Modality Radiographic Hailey ging 10/27/2015 10:4 7 AM HOOKER INSPECTOR Narrative 10/27/2015 10:50 AM HOOKER INSPECTOR FLUOROSCOPY: Less than 1 hour of fluoroscopy was utilized during a lumbar spinal fusion. No radiologist was present. One minute 22 seconds fluoroscopy were provided. Procedure Note Wilda Jimenez MD - 10/27/2015 FLUOROSCOPY: Less than 1 hour of fluoroscopy was utilized during a lumbar spinal fusion. No radiologist was present. One minute 22 seconds fluoroscopy were provided. Martin Dahl MD FLUOROSCOPY ORD ERABLES * IMAGING/RADIOLOGY/XRAY RESULTS ORDER (08/17/2015) Only the most recent of4 resultswithin the time period is included. Anatomical Region Laterality Modality Other Provider Unknown IMAGING * CYTOLOGY NON-CREDIT OPERATIONS PROCESSOR PANEL (STL) (03/15/2013 1:48 PM CDT) Case Report Cytology Non Drug Enforcement Agent Report Case: [id number] -------- Authorizing Provider: Martin Jefferson MD Ordering Provider: Martin Jefferson MD Ordering Location: [facility] Intervention Rad Collected: 03/15/2013 1:48 PM Pathologist: Dirk Magaña MD Received: 03/15/2013 1:48 PM Signed Out: 03/19/2013 3:02 PM (Final) Specimen: CSF 03/19/2013 3:02 PM CDT [facility] Final Diagnosis 1. CSF cytology Thin-prep preparation: -- Acellular smear Jeremy 03/19/2013 3:02 PM CDT [facility] Microscopic Description One cytology Thin-prep slide of CSF was examined. Smear is acellular. Jeremy 03/19/2013 3:02 PM CDT [facility] Synoptic Report 03/19/2013 3:02 PM CDT [facility] Miscellaneous samples (specimen) CEREBROSPINAL FLUID SPECIMEN / Unknown 03/15/2013 1:48 PM CDT 03/15/2013 1:48 PM CDT Martin Jefferson MD LAB - PATHOLOGY/CYTO LOGY ORDERABLES Performing Organization Address [facility] Co de Phone Number [facility] [address] [place] [address] * CRYPTOCOCCUS ANTIGEN CSF (03/15/2013 12:35 PM CDT) Cryptococcus Antigen CSF Negative Negative 03/15/2013 5:32 PM CDT [facility] Spinal fluid (substance) CEREBROSPINAL FLUID SPECIMEN / Unknown 03/15/2013 12:35 PM CDT 03/15/2013 12:49 PM CDT Martin Jefferson MD LAB - MICROBIOLOGY O RDERABLES Performing Organization Address [facility] de Phone Number [facility] [address] [place] [address], [facility] * CULTURE FUNGUS OTHER+FUNGUS SMEAR (03/15/2013 12:35 PM CDT) Culture No Fungus Isolated 04/09/2013 6:18 AM CDT [facility] Fungus Smear No yeast or hyphae seen 04/09/2013 6:18 AM CDT [facility] Microbiology CEREBROSPINAL FLUID SPECIMEN / Unknown 03/15/2013 12:35 PM CDT 03/15/2013 12:49 PM CDT Martin Jefferson MD LAB - MICROBIOLOGY O RDERABLES Performing Organization Address [facility] de Phone Number [facility] [address] [place] [address], [facility] * CULTURE AFB+SMEAR (03/15/2013 12:35 PM CDT) Culture No Acid Fast Bacillus Isolated 04/29/2013 3:11 PM CDT [facility] AFB Smear No Acid Fast bacilli seen 04/29/2013 3:11 PM CDT [facility] Microbiology CEREBROSPINAL FLUID SPECIMEN / Unknown 03/15/2013 12:35 PM CDT 03/15/2013 12:49 PM CDT Martin Jefferson MD LAB - MICROBIOLOGY O RDERABLES Performing Organization Address City/[facility]/ZIP Co de Phone Number [facility] [address] [place] [address], [facility] * VDRL CSF (03/15/2013 12:35 PM CDT) VDRL CSF Non Reactive Non Reactive 03/17/2013 12:34 AM CDT [facility] VDRL Titer CSF Not Done 03/17/2013 12:34 AM CDT [facility] Comment: Because the VDRL was Non Reactive, the VDRL titer was not performed. Spinal fluid (substance) CEREBROSPINAL FLUID SPECIMEN / Unknown 03/15/2013 12:35 PM CDT 03/15/2013 12:49 PM CDT Martin Jefferson MD LAB - BODY FLUID ORD ERABLES Performing Organization Address City/[facility]/ZIP Co de Phone Number [facility] [address] [place] [address] * GRAM STAIN (LAB ORDERED) (03/15/2013 12:33 PM CDT) Gram Stain No organisms seen 03/15/2013 7:30 PM CDT [facility] Miscellaneous samples (specimen) CEREBROSPINAL FLUID SPECIMEN / Unknown 03/15/2013 12:33 PM CDT 03/15/2013 12:49 PM CDT Martin Jefferson MD LAB - MICROBIOLOGY O RDERABLES Performing Organization Address City/[facility]/ZIP Co de Phone Number [facility] [address] [place] [address] * CULTURE CSF+GRAM STAIN (03/15/2013 12:33 PM CDT) Culture No Growth 03/22/2013 4:20 AM CDT [facility] Gram Stain No organisms seen 03/22/2013 4:20 AM CDT [facility] Spinal fluid (substance) CEREBROSPINAL FLUID SPECIMEN / Unknown 03/15/2013 12:33 PM CDT 03/15/2013 12:49 PM CDT Martin Jefferson MD LAB - MICROBIOLOGY O RDERABLES Performing Organization Address City/[facility] Co de Phone Number [facility] [address] [place] [address], [facility] * CELL COUNT W DIFFERENTIAL CSF (03/15/2013 12:33 PM CDT) Only the most recent of2 resultswithin the time period is included. Character CSF Clear 03/15/2013 1:25 PM CDT [facility] Color CSF Colorless Colorless 03/15/2013 1:25 PM CDT [facility] WBC CSF 0 0 - 5 x10^6/L 03/15/2013 1:25 PM CDT [facility] RBC CSF 0 0 - 5 x10^6/L 03/15/2013 1:25 PM CDT [facility] Spinal fluid (substance) CEREBROSPINAL FLUID SPECIMEN / Unknown 03/15/2013 12:33 PM CDT 03/15/2013 12:49 PM CDT Narrative [facility] - 03/15/2013 1:25 PM CDT WBC differential is not indicated. If a differential is needed please contact the hematology laboratory at [phone] to request a differential. Martin Jefferson MD LAB - BODY FLUID ORD ERABLES Performing Organization Address [facility] Co de Phone Number [facility] [address] [place] [address] * PROTEIN CSF (03/15/2013 12:33 PM CDT) Protein CSF 56 12 - 60 mg/dL 03/15/2013 1:03 PM CDT [facility] Spinal fluid (substance) CEREBROSPINAL FLUID SPECIMEN / Unknown 03/15/2013 12:33 PM CDT 03/15/2013 12:49 PM CDT Martin Jefferson MD LAB - BODY FLUID ORD ERABLES Performing Organization Address [facility] Co de Phone Number [facility] [address] [place] [address] * GLUCOSE CSF (03/15/2013 12:33 PM CDT) Glucose CSF 68 40 - 70 mg/dL 03/15/2013 1:03 PM CDT [facility] Spinal fluid (substance) CEREBROSPINAL FLUID SPECIMEN / Unknown 03/15/2013 12:33 PM CDT 03/15/2013 12:49 PM CDT Martin Jefferson MD LAB - BODY FLUID ORD ERABLES [facility] [address] [place] [address] * FL FLUORO LUMBAR PUNCT (03/15/2013 11:45 AM CDT) Anatomical Region Laterality Modality Spine Radiographic Hailey ging 03/15/2013 1:21 PM CDT Impressions 03/15/2013 1:21 PM CDT Successful fluoroscopic guided lumbar puncture as described above. Narrative 03/15/2013 1:21 PM CDT Fluoroscopic-guided lumbar puncture Clinical Indication: Multiple sclerosis Physician: Dr. May. Complications: None. Sedation: None. Procedure/Findings: The risks and benefits of the procedure were explained to the patient. The risks include but are not limited to bleeding, infection, nerve injury, epidural hematoma, headache, cerebrospinal fluid leak, pain, failed procedure, and nondiagnostic result. The patient was given ample time to ask questions. Following this both written and verbal informed consent was obtained. The patient was placed prone on the fluoroscopy table and the L2-L3 interspinous space was localized with fluoroscopic guidance. A suitable skin entry site was marked. Following sterile prep and administration of 1% lidocaine local anesthesia, a 20-gauge spinal needle was advanced into the thecal sac at L2-L3 under fluoroscopic guidance. Approximately 15 cc of clear cerebrospinal fluid was removed and sent to the laboratory for analysis. The needle was then removed and hemostasis achieved immediately after. The patient tolerated the procedure well and there were no immediate complications. The patient was then transferred to routine postprocedure monitoring in stable condition. The total fluoroscopy time was 0.4 minutes. Procedure Note Sushma May MD - 03/15/2013 Fluoroscopic-guided lumbar puncture Clinical Indication: Multiple sclerosis Physician: Dr. May. Complications: None. Sedation: None. Procedure/Findings: The risks and benefits of the procedure were explained to the patient. The risks include but are not limited to bleeding, infection, nerve injury, epidural hematoma, headache, cerebrospinal fluid leak, pain, failed procedure, and nondiagnostic result. The patient was given ample time to ask questions. Following this both written and verbal informed consent was obtained. The patient was placed prone on the fluoroscopy table and the L2-L3 interspinous space was localized with fluoroscopic guidance. A suitable skin entry site was marked. Following sterile prep and administration of 1% lidocaine local anesthesia, a 20-gauge spinal needle was advanced into the thecal sac at L2-L3 under fluoroscopic guidance. Approximately 15 cc of clear cerebrospinal fluid was removed and sent to the laboratory for analysis. The needle was then removed and hemostasis achieved immediately after. The patient tolerated the procedure well and there were no immediate complications. The patient was then transferred to routine postprocedure monitoring in stable condition. The total fluoroscopy time was 0.4 minutes. IMPRESSION Successful fluoroscopic guided lumbar puncture as described above. Martin Jefferson MD FLUOROSCOPY ORDERABL ES * (ABNORMAL) OLIGOCLONAL BANDS CSF PANEL (03/15/2013 9:37 AM CDT) IgG CSF 4.0 0.0 - 6.0 mg/dL 03/17/2013 7:21 AM CDT [facility] Oligoclonial Bands Number 0 0 - 1 Bands 03/17/2013 7:21 AM CDT [facility] IgG 719(L) 768 - 1632 mg/dL 03/17/2013 7:21 AM CDT [facility] Comment: REFERENCE INTERVAL: Immunoglobulin G Access complete set of age- and/or gender-specific reference intervals for this test in the [facility] Test Directory ([email or web address].com). Albumin 4500 3500 - 5200 mg/dL 03/17/2013 7:21 AM CDT [facility] Albumin CSF 50(H) 0 - 35 mg/dL 03/17/2013 7:21 AM CDT [facility] Albumin Index 11.1(H) 0.0 - 9.0 ratio 03/17/2013 7:21 AM CDT [facility] IgG Index 0.50 0.28 - 0.66 ratio 03/17/2013 7:21 AM T [facility] IgG/Albumin Ratio CSF 0.08(L) 0.09 - 0.25 ratio 03/17/2013 7:21 AM CDT [facility] Oligoclonal Bands Negative Negative 013 7:21 AM CDT [facility] Synthesis Rate <0.0 <=8.0 mg/d 03/17/2013 7:21 AM T [facility] Interpretation Oligoclonial See Note 03/17/2013 7:21 AM T [facility] Comment: Isoelectric focusing/immunofixation reveals identical bands in the CSF and the serum. This is consistent with a systemic, not intrathecal, immune reaction and is considered to be a negative result for oligoclonal bands. Approximately 5 percent of patients with clinically definitive multiple sclerosis will have a negative result. An elevated albumin index indicates damage to the blood-CSF barrier or contamination of CSF with blood during sample collection. An index value less than 9 is considered consistent with an intact barrier. Values of 9-14 are interpreted as slight impairment, of 14-30 as moderate impairment, and of 30-100 as severe impairment. Values exceeding 100 indicate complete breakdown of the barrier. Other (qualifier value) MISCELLANEOUS SAMPLES / Unknown 03/15/2013 9:37 AM CDT 03/15/2013 12:49 PM CDT Martin Jefferson MD LAB - BODY FLUID ORD ERABLES [facility] [address] [place] [address] * MRI PELVIS WITH & WITHOUT CONTRAST (03/12/2013 11:23 AM CDT) Anatomical Region Laterality Modality Pelvis Magnetic Resonan ce 03/12/2013 1:09 PM CDT Impressions 03/12/2013 2:49 PM CDT MILD DISCOGENIC DEGENERATIVE CHANGES AT L4-L5. THE EXAMINATION IS OTHERWISE UNREMARKABLE. Narrative 03/12/2013 2:49 PM CDT MRI PELVIS WITH AND WITHOUT INTRAVENOUS CONTRAST CLINICAL INDICATION: Severe pelvic pain. Lumbosacral plexitis. Lumbosacral neuritis. TECHNIQUE: T1 pre- and postcontrast and STIR imaging of the pelvis was performed. A high-resolution narrow nvlxz-op-xdys is utilized to incorporate the lumbosacral plexus. 15 cc of Omniscan gadolinium contrast was utilized for the postcontrast scans. FINDINGS: Modic degenerative endplate marrow edema is present at L4-L5. A mild disc bulge is present at L4-L5. There are no other sites of altered osseous signal. The sacral neural foramina are widely patent. The L5-S1 neural foramina and lateral recesses are widely patent. There are no abnormal sites of enhancement. The sacroiliac joints are congruent. Signal and enhancement of the josh sacral soft tissues are within normal limits. The iliolumbar ligaments are normal in signal and thickness. The piriformis muscles are symmetric. The visualized portions of the sciatic nerves are unremarkable. Procedure Note Sushma May MD - 03/12/2013 MRI PELVIS WITH AND WITHOUT INTRAVENOUS CONTRAST CLINICAL INDICATION: Severe pelvic pain. Lumbosacral plexitis. Lumbosacral neuritis. TECHNIQUE: T1 pre- and postcontrast and STIR imaging of the pelvis was performed. A high-resolution narrow rrsdt-rs-rkin is utilized to incorporate the lumbosacral plexus. 15 cc of Omniscan gadolinium contrast was utilized for the postcontrast scans. FINDINGS: Modic degenerative endplate marrow edema is present at L4-L5. A mild disc bulge is present at L4-L5. There are no other sites of altered osseous signal. The sacral neural foramina are widely patent. The L5-S1 neural foramina and lateral recesses are widely patent. There are no abnormal sites of enhancement. The sacroiliac joints are congruent. Signal and enhancement of the josh sacral soft tissues are within normal limits. The iliolumbar ligaments are normal in signal and thickness. The piriformis muscles are symmetric. The visualized portions of the sciatic nerves are unremarkable. IMPRESSION MILD DISCOGENIC DEGENERATIVE CHANGES AT L4-L5. THE EXAMINATION IS OTHERWISE UNREMARKABLE. Martin Jefferson MD MR ORDERABLES * MRI BRAIN NON CONTRAST (03/12/2013 11:23 AM CDT) Anatomical Region Laterality Modality Head Magnetic Resonan ce 03/12/2013 12:4 2 PM CDT Impressions 03/12/2013 1:31 PM CDT Normal MRI of brain. Narrative 03/12/2013 1:31 PM CDT MRI BRAIN INDICATION: Numbness bilateral lower extremities to chest, multiple sclerosis. TECHNIQUE: Sagittal and axial T1, axial dual-echo T2, axial FFE, coronal and axial FLAIR, axial diffusion. Sagittal FLAIR and sagittal dual echo T2 sequences were additionally performed per MS protocol. Gadolinium was not administered for this examination. FINDINGS: There are no areas of abnormal restricted diffusion to suggest the presence of an acute cortical or white matter infarction. The ventricles and sulci are within normal limits in size for patient's given age. There is no intracranial hemorrhage, mass, or mass effect. No abnormal extra-axial fluid collection is seen. There is no cortical infarction. Nonspecific white matter changes are mild and age appropriate. Major arterial and dural venous flow-voids at the skull base are patent. The visualized cranial and facial soft tissues are grossly unremarkable. Procedure Note Wilda Jimenez MD - 03/12/2013 MRI BRAIN INDICATION: Numbness bilateral lower extremities to chest, multiple sclerosis. TECHNIQUE: Sagittal and axial T1, axial dual-echo T2, axial FFE, coronal and axial FLAIR, axial diffusion. Sagittal FLAIR and sagittal dual echo T2 sequences were additionally performed per MS protocol. Gadolinium was not administered for this examination. FINDINGS: There are no areas of abnormal restricted diffusion to suggest the presence of an acute cortical or white matter infarction. The ventricles and sulci are within normal limits in size for patient's given age. There is no intracranial hemorrhage, mass, or mass effect. No abnormal extra-axial fluid collection is seen. There is no cortical infarction. Nonspecific white matter changes are mild and age appropriate. Major arterial and dural venous flow-voids at the skull base are patent. The visualized cranial and facial soft tissues are grossly unremarkable. IMPRESSION Normal MRI of brain. Martin Jefferson MD MR ORDERABLES * IMMUNOFIXATION (03/06/2013 1:28 PM CDT) Interpretation [facility] Comment: Normal pattern. No monoclonal proteins detected. Test Performed at: [facility] [id number] [place] [address] MIO ROBIN DO,MPH Blood specimen (specimen) BLOOD SPECIMEN / Unknown 03/06/2013 1:28 PM CDT 03/06/2013 1:28 PM CDT Martin Jefferson MD LAB - CHEMISTRY [facility] [place] Performing Organization Address [facility] Co de Phone Number [facility] [address] [place] [address] * RPR W REFLEX CONFIRM (03/06/2013 1:28 PM CDT) Pathologist [facility] RPR NON-REACT TERESO NON-REACT TERESO [facility] Comment: The RPR is a ypz-hnhaianhgj-yybjsnxw test; therefore, a treponemal-specific confirmatory test should be performed unless prior syphilis infection has been documented for this patient. Test Performed at: [facility] [id number] [id number] MIO ROBIN DO,MPH Blood specimen (specimen) BLOOD SPECIMEN / Unknown 03/06/2013 1:28 PM CDT 03/06/2013 1:28 PM CDT Martin Jefferson MD LAB - CHEMISTRY [facility] Performing Organization Address [facility] de Phone Number [facility] [address] [place] [address] * RIVER BLOOD SCREEN W/REFLEX TITER (03/06/2013 1:28 PM CDT) [facility] RIVER Screen NEGATIVE NEGATIVE [facility] Comment: Test Performed at: [facility] [id number] [place] [address] MIO ROBIN DO,MPH Blood specimen (specimen) BLOOD SPECIMEN / Unknown 03/06/2013 1:28 PM CDT 03/06/2013 1:28 PM CDT Martin Jefferson MD LAB - CHEMISTRY [place] Performing Organization Address [facility] Co de Phone Number [facility] [id number] [place] [address] * VITAMIN B12 FOLATE PANEL (03/06/2013 1:28 PM CDT) Vitamin B12 460 200 - 1100 pg/mL [facility] Folate 8.7 ng/mL [facility] Comment: Reference Range Low: <3.4 Borderline: 3.4-5.4 Normal: >5.4 Test Performed at: [place] [address] MIO ROBIN DO,MPH Blood specimen (specimen) BLOOD SPECIMEN / Unknown 03/06/2013 1:28 PM CDT 03/06/2013 1:28 PM CDT Martin Jefferson MD LAB - CHEMISTRY [facility] Performing Organization Address [facility] de Phone Number [facility] [address] [place] [address] * PROTEIN ELECTROPHORESIS BLOOD (03/06/2013 1:28 PM CDT) [facility] Protein Total 7.4 6.1 - 8.1 g/dL [facility] Comment: Test Performed at: [place] [address] MIO ROBIN DO,MPH Albumin 4.0 3.5 - 4.7 g/dL [facility] Alpha-1 Globulin 0.3 0.1 - 0.3 g/dL [facility] Tzfnc-0-Pyexljcu 0.9 0.5 - 1.0 g/dL [facility] Beta-Globulin 1.3 0.8 - 1.4 g/dL [facility] Gamma Globulin 0.9 0.6 - 1.6 g/dL [facility] Comment: Test Performed at: [place] [address] MIO ROBIN DO,MPH Interpretation [facility] Comment: Protein electrophoresis pattern appears normal. Blood specimen (specimen) BLOOD SPECIMEN / Unknown 03/06/2013 1:28 PM CDT 03/06/2013 1:28 PM CDT Martin Jefferson MD LAB - CHEMISTRY [facility] [place] Performing Organization Address [facility] Co de Phone Number [facility] [address] [place] [address] * NERVE CONDUCTION TEST (03/06/2013) Martin Jefferson MD NEUROLOGY ORDERABLES [facility] * XR SHOULDER 2+ VW RIGHT (06/06/2012 2:15 PM CDT) Anatomical Region Laterality Modality Upper Extremity Other Narrative 06/06/2012 2:15 PM CDT Ken Alcaraz, RT 06/06/2012 2:15 PM See progress notes for results Procedure Note Lissa Ken Bowden, RT - 06/06/2012 2:15 PM CDT See progress notes for results Cortney Hedrick MD DIAGNOSTIC IMAGING ORDERABLES Care Teams [employer] Architect Relationship Specialty Start Date End Date Wilmer Li MD [address] [place] [id number] PCP - General Internal Medicine 06/06/12 Cortney Hedrick MD Orthopedic Surgery 06/06/12 Kristi Marvin, RN Electrical Fitter 10/28/15
--- OUTSIDE RECORDS SUMMARY | 2024-11-05 14:03 | XMS_ITS | Referral Summary ---
Author Organization [facility] Address [facility] [place] [address] Care Team Providers Care Medical Aide Name Role Phone Cortney Hedrick MD Unavailable [phone] Wilmer Li MD Primary Care Provider [phone] Kristi Marvin RN Unavailable [phone] Source Comments [facility],non-owned Affiliates and Associated Physician Practices is amultiple site organization consisting of ambulatory clinics and hospital sitesin [place], [place], [place] and [place]. This disclosure is being madepursuant to the Care Everywhere program and may not contain all information available regarding this patient. Last updated 18.[facility] [employer] Allergies No known active allergies Medications * [...] Administration Dates Next Due INFLUENZA VACCINE 11/03/2012 Social History Tobacco Use Types Packs/Day Years [...] Mass Index 31.16 05/06/2016 7:39 AM CDT Functional Status Functional Status Response Date of Assess ment Is person deaf or have serious hearing difficult y? No 05/06/2016 Is person blind or have serious difficulty seein g? No 05/06/2016 Does person have serious dif ficulty walking/climbing stairs? Yes 05/06/2016 Does person have difficulty dressing/bathing? No 05/06/2016 Does person have difficulty doing errands alone? No 05/06/2016 Cognitive Status Response Date of Assessm ent Does person have difficulty concentrating/remembering/making decisions? No 05/06/2016 Plan of Treatment Not on file Medical Devices Implanted Type Area Dynamite Cartridge Crimper Device Identifier Shelf Expiration Date Model / Serial / Lot Putty Dbm Progenix 5cc Implanted:Qty: 1 on 10/27/2015 by Martin Dahl MD at [facility] Spine Lumbar Spinal [employer] 04/24/2017 [id number] / / [id number] Bone Canc Crush 15cc Implanted:Qty: 1 on 10/27/2015 by Martin Dahl MD at [facility] Spine Lumbar [employer] 05/04/2020 [id number] / / [id number] Corelink Locking Nuts Implanted:Qty: 4 on 10/27/2015 by Martin Dahl MD at [facility] Spine Lumbar [id number] / / Corelink Connectors Implanted:Qty: 4 on 10/27/2015 by Martin Dahl MD at [facility] Spine Lumbar [id number] / / Corelink 6.5 X 45 Screw Implanted:Qty: 4 on 10/27/2015 by Martin Dahl MD at [facility] Spine Lumbar [id number] / / Corelink 8mm Cage Implanted:Qty: 1 on 10/27/2015 by Martin Dahl MD at [facility] Spine Lumbar [id number] / / Corelink Curved Saravanan 45mm Implanted:Qty: 2 on 10/27/2015 by Martin Dahl MD at [facility] Spine Lumbar [id number] / / Putty Grft Bone Dbm Progenix 1cc Implanted:Qty: 1 on 05/06/2016 by Martin Dahl MD at [facility] Spine Cervical Spinal [employer] 11/11/2017 [id number] / / [id number] Cage Cerv [place]/C Sys 12 X 12mm Implanted:Qty: 1 on 05/06/2016 by Martin Dahl MD at [facility] Spine Cervical [employer] 05/12/2016 [id number] / / [id number] Description:Plate and screws removed from uuppr level Advance Directives * Full Code (Latest Code Status on File) Date Activated Date Inactivated Comments 05/06/2016 3:36 PM 05/07/2016 3:27 PM * Full Code Date Activated Date Inactivated Comments 10/27/2015 1:10 PM 10/29/2015 12:53 PM * FULL RESUSCITATION Date Activated Date Inactivated Comments 11/02/2012 11:09 AM 11/03/2012 11:42 AM Care Teams Medical Aide Relationship Specialty Start Date End Date Wilmer Li MD [address] [place] [address] PCP - General Internal Medicine 06/06/12 Cortney Hedrick MD Orthopedic Surgery 06/06/12 Kristi Marvin, RN Electroplating Sales Representative 10/28/15
--- OUTSIDE RECORDS SUMMARY | 2024-11-05 14:03 | XMS_ITS | Encounter Summary ---
Author Organization [facility] Healthcare Address [address] [place] [address] Care Team Providers Care Bridges And Buildings Supervisor Name Role Phone Asim Clarke NP Primary Care Provider [phone] Encounter Details Date Type Department Care Team (Late st Contact Info) Description 11/01/2024 Telephone Family Care at [address] [address] Asim Clarke, BEN [address] [place] [address] [id number] Social History Tobacco Use Types Packs/Day Years Used Date Smoking Tobacco: Former Cigarettes 1 40 1 978 - 09/14/2017 Passive Smoke Exposure: Never Smokeless Tobacco: Never Alcohol Use Standard Drinks/Week Comments No 0 [...] on file Legal Sex Female 11:53 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 Gender Identity Not on file Sexual Orientation Not on file documented as of this encounter Miscellaneous Notes * Telephone Encounter - Sandy Jimenez MA - 11/04/2024 11:14 AM CST Done DING REPAIR MAINTENANCE SUPERVISOR * Telephone Encounter - Asim Clarke NP - 11/01/2024 3:29 PM CST Yes we can fax the notes from her recent visits to the new doctor treating her DING REPAIR MAINTENANCE SUPERVISOR * Telephone Encounter - Scooter Elizabeth MBA - 11/01/2024 3:10 PM CST Carole, Called and wanted to know if they could get the notes pertaining to Ms Sahu back pain She is having a consultation on the Oct. Fax no is [phone] If you have anymore information regarding her back pain or injury please fax it over to them . Thank you, Abiola DING REPAIR MAINTENANCE SUPERVISOR documented in this encounter Plan of Treatment Not on file documented as of this encounter Visit Diagnoses Not on filedocumented in this encounter Care Teams Bridges And Buildings Supervisor Relationship Specialty [place] [address] [address] PCP - General Family Medicine 12/10/19 documented as of this encounter
--- OUTSIDE RECORDS SUMMARY | 2024-11-05 14:03 | XMS_ITS | Encounter Summary ---
Author Organization [facility] Health Address [address] [place], [place] [address] [address] Care Team Providers Care Data Integrity Consultant Name Role Phone Cortney Hedrick MD Unavailable Wilmer Li MD Primary Care Provider [phone] Kristi Marvin RN Unavailable [phone] Encounter Details Date Type Department Care Team (Late st Contact Info) Description 10/02/2015 Therapy Visit [facility]TERNAL [facility] DEPT Unknown, Provider [...] on filedocumented in this encounter Care Teams Data Integrity Consultant Relationship Specialty Start Date End Date Wilmer Li MD [address] [address] PCP - General Internal Medicine 06/06/12 Cortney Hedrick MD Orthopedic Surgery 06/06/12 Kristi Marvin RN Shaft Repairer 2/17/16 documented as of this encounter
--- OUTSIDE RECORDS SUMMARY | 2024-11-05 14:03 | XMS_ITS | Encounter Summary ---
Author Organization [facility] Health Address [address] [place], [place] [address] [address] Care Team Providers Care Superintendent Plant Protection Name Role Phone Cortney Hedrick MD Unavailable Wilmer Li MD Primary Care Provider Kristi Marvin RN Unavailable [phone] Encounter Details Date Type Department Care Team (Late st Contact Info) Description 10/05/2015 Therapy Visit [facility]TERNAL [facility] DEPT Unknown, Provider [...] on filedocumented in this encounter Care Teams Superintendent Plant Protection Relationship Specialty Start Date End Date Wilmer Li MD [address] [address] PCP - General Internal Medicine 06/06/12 Cortney Hedrick MD Orthopedic Surgery 06/06/12 Kristi Marvin RN Economics Analyst 2/17/16 documented as of this encounter
== END 2024-11-05 12:16 | disposition home or self-care (01) ==
PROVIDERS: Visit Provider Neurological Surgery
DX: M51.369 Other intervertebral disc degeneration, lumbar region without mention of lumbar back pain or lower extremity pain (principal); Z98.1 Arthrodesis status; S22.080A Wedge compression fracture of T11-T12 vertebra, initial encounter for closed fracture; X58.XXXA Exposure to other specified factors, initial encounter; M47.816 Spondylosis without myelopathy or radiculopathy, lumbar region
CPT/HCPCS: 72100

== ENCOUNTER 2025-02-12 13:49 | Outpatient (CLI) | payer OTHER, MEDICARE, SELFPAY ==
--- NOTE | ~2025-02-12 | CT_ITS ---
EXAMINATION: [id number] DATE: 02/12/2025 14:13 INDICATION: Spinal cord injury. Assess arthrodesis status. TECHNIQUE: Computed tomography (CT) of the lumbar spine was performed without intravenous contrast. A utomated exposure control and iterative reconstruction technique were employed. The dose-length produ ct was 1183.86 mGy-cm. COMPARISON: Radiographs dated 11/05/2024 FINDINGS: L4 and L5 laminectomies and L4-L5 instrumented anterior and posterior spinal fusion with bilateral ve rtical elizabeth and pedicle screw fixation and interbody bone graft cage. There is solid osseous fusion ac ross the disc space of the bilateral facet joints.. There is no lucency surrounding the screws to sug gest loosening or infection. Alignment is normal. Chronic mild anterior wedging at T10-L1. Mild disc height loss at T12-L1, L2-L3 and L5-S1. Moderate to severe posterior disc height loss at L3-L4. Moder ate osteoarthritis at the bilateral sacroiliac joints. Paravertebral soft tissues are unremarkable. T he following disc levels are specifically discussed: T10-T11: There is moderate right and severe left facet osteoarthritis. There is minimal bilateral wilman ral foraminal stenosis. There is no central canal stenosis. T11-T12: There is moderate bilateral facet joint osteoarthritis. There is no neural foraminal stenosi s. There is no central canal stenosis. T12-L1: Disc is minimally bulging. There is mild to moderate bilateral facet joint osteoarthritis. Th ere is no neural foraminal stenosis. There is no central canal stenosis. L1-L2: Disc is minimally bulging. There is moderate bilateral facet joint osteoarthritis. There is no neural foraminal stenosis. There is no central canal stenosis. L2-L3: Disc is bulging. There is moderate left and severe right facet joint osteoarthritis. There is mild to moderate bilateral neural foraminal stenosis. There is mild central canal stenosis. L3-L4: Disc is bulging. There is severe bilateral facet joint osteoarthritis. There is moderate bilat eral neural foraminal stenosis. There is likely mild central canal stenosis however evaluation is wei ited by streak artifact related to the posterior spinal fusion instrumentation. L4-L5: Disc space is fused with small posterior endplate osteophytes. There is posterior decompressio n with both L4 and L5 laminectomies and fusion at the bilateral facet joints. There is mild bilateral neural foraminal stenosis. There is no central canal stenosis. L5-S1: Disc is mildly bulging. There is moderate right and moderate to severe left facet joint osteoa rthritis. There is mild left neural foraminal stenosis. There is no central canal stenosis. IMPRESSION: 1. Moderate cervical spondylosis with prior L4 and L5 laminectomies and L4-L5 instrumented anterior a nd posterior spinal fusion. Reviewed, dictated and finalized at location A. IMPRESSION: 1. Moderate cervical spondylosis with prior L4 and L5 laminectomies and L4-L5 i nstrumented anterior and posterior spinal fusion.
--- OUTSIDE RECORDS SUMMARY | 2025-02-12 14:03 | XMS_ITS | Encounter Summary ---
Author Organization [facility] Health Address [address] [place], [place] [address] [address] Care Team Providers Care Pay Agent Name Role Phone Cortney Hedrick MD Unavailable [phone] Wilmer Li MD Primary Care Provider [phone] Kristi Marvin RN Unavailable [phone] Encounter Details Date Type Department Care Team (Late st Contact Info) Description 10/02/2015 Therapy Visit [facility]TERNAL [facility] DEPT Unknown, Provider Social History Tobacco Use Types Packs/Day Years Used Date Smoking Tobacco: Former Cigarettes Q uit: 03/11/2011 Smokeless Tobacco: Never Alcohol Use Standard Drinks/Week Comments Yes 2.5 (1 standard drin k = 0.6 oz pure alcohol) mixed drinks approx. 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 Gender Identity Not on file Sexual Orientation Not on file Occupation Industry Job Start Date Job End Date DISABLED Not on file Not on file Not on file documented as of this encounter Plan of Treatment Not on file documented as of this encounter Visit Diagnoses Not on filedocumented in this encounter Care Teams Pay Agent Relationship Specialty Start Date End Date Wilmer Li MD [address] [place] [address] PCP - General Internal Medicine 06/06/12 Cortney Hedrick MD Orthopedic Surgery 06/06/12 Kristi Marvin RN Adapted Physical Education Specialist 10/28/15 documented as of this encounter
--- OUTSIDE RECORDS SUMMARY | 2025-02-12 14:03 | XMS_ITS | Encounter Summary ---
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 Gender Identity Not on file Sexual Orientation Not on file Occupation Industry Job Start Date Job End Date DISABLED Not on file Not on file Not on file documented as of this encounter Plan of Treatment Not on file documented as of this encounter Visit Diagnoses Not on filedocumented in this encounter Care Teams Hadoop Administrator Relationship Specialty Start Date End Date Wilmer Li MD [address] [place] [address] PCP - General Internal Medicine 06/06/12 Cortney Hedrick MD Orthopedic Surgery 06/06/12 Kristi Marvin RN Hand Silvering Supervisor 10/28/15 documented as of this encounter
--- OUTSIDE RECORDS SUMMARY | 2025-02-12 14:03 | XMS_ITS | Encounter Summary ---
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
--- OUTSIDE RECORDS SUMMARY | 2025-02-12 14:03 | XMS_ITS | Continuity of Care Document ---
Author Organization [facility] Address [address] [place] [phone] Phone Care Team Providers Care Conference Reservationist Name Role Phone Savage Patel MD Unavailable Unavailable Advance Directives Directive Yes / No Effective Date File Name No Information Encounters Encounter Description Practice Location Reason(s) For Visit Diagnoses Date Provider Providers Copied on Encounter [facility], [address] [place] [address], [address] [place] [address], tel:[phone] [facility] No Information Amanda SavageSteve [address] [place], [place], [id number] , . tel: [phone] [facility], [address] [place] [address], [id number], tel:[phone] [facility] OTH ADV EFF MED/BIO SUBCERVICALGIA Amanda Nguyen [address] [place], [place], [id number] , . tel: [phone] Family History Family Member Type Diagnosis Age At Onset No Information Payers Payer name Insurance type Covered alliance party ID Authoriza tion(s) No Information Social History Type Description Quantity Date Captured Comments Sex Female Smoking Status No Information Chief Complaint And Reason For Visit No Information Reason For Referral Reason For Referral No Information History Of Present Illness Encounter Date Complaint History Of Prese nt Illness No Information Functional Status Date Functional Assessmen t No Information Instructions Date Instruction Additional Infor mation No Information Assessments Type Assessment Date No Information Patient Care Teams Name Effective Dates (start - stop) Status Members No Information
--- OUTSIDE RECORDS SUMMARY | 2025-02-12 14:03 | XMS_ITS | Encounter Summary ---
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
--- OUTSIDE RECORDS SUMMARY | 2025-02-12 14:03 | XMS_ITS | Clinical Summary ---
Author Organization [facility] Address [address] [place] [phone] Phone Care Team Providers Care Business Support Administrator Name Role Phone Provider, None Primary Care Provider Unavailabl e Allergies No known active allergies Medications ALPRAZolam (XANAX) 0.5 MG Tablet 05/23/2024 Active atorvastatin (LIPITOR) 10 MG Tablet 05/22/2024 Active bisacodyl 5 MG Tablet Delayed Response 05/22/2024 Active Desvenlafaxine Succinate 100 MG TABLET SR 24 HR 05/22/2024 Active ergocalciferol (VITAMIN D) 53300 UNIT Capsule TAKE 1 CAPSULE BY MOUTH [...] complete this topic Insurance CIG Care Teams Business Support Administrator Relationship Specialty Start Date End Date Provider, None [place] PCP - General 06/12/24
--- OUTSIDE RECORDS SUMMARY | 2025-02-12 14:03 | XMS_ITS | Clinical Summary ---
Author Organization [facility] Address [facility] [facility] [place] [address] Care Team Providers Care Fire Prevention Forester Name Role Phone Cortney Hedrick MD Unavailable [phone] Wilmer Li MD Primary Care Provider [phone] Kristi Marvin RN Unavailable [phone] Source Comments [facility],non-owned Affiliates and Associated Physician Practices is amultiple site organization consisting of ambulatory clinics and hospital sitesin [place], [place], [place] and [place]. This disclosure is being madepursuant to the Care Everywhere program and may not contain all information available regarding this patient. Last updated 18.[facility] Allergies No known active allergies Medications * Be aware that medications may not be up to date on this document. Alwaysverify current medications with the patient. ALPRAZolam (XANAX) 1 MG tablet Take 1 mg by mouth 2 times daily Active gabapentin (NEURONTIN) 300 MG capsule Take 1 Cap by mouth 3 times daily. 90 Cap 5 3 Active Additional Information Patient taking differently:300 mg Oral4 TIMES DAILY, Reported on 10/16/2015 DESVENLAFAXINE SR 24hr (PRISTIQ) 100 MG tablet Take by mouth once daily Active zolpidem CR (AMBIEN CR) 6.25 MG tablet Take 6.25 mg by mouth at bedtime Active VICTOZA 18 MG/3ML pen Inject subcutaneously once daily 6 Active Sennosides (SENNA LAX PO) Pt unsure of dose. Active oxyCODONE-acet aminophen (PERCOCET) 5-325 MG tablet Take 1-2 Tabs by mouth every 4 hours as needed for Pain 40 Tab 0 6 Active Additional Information Patient not taking.Reported on 05/30/2016 cyclobenzaprin e (FLEXERIL) 10 MG tablet Take 1 Tab by mouth 3 times daily as needed for Muscle Spasms 42 Tab 0 6 Active Additional Information Patient not taking.Reported on 05/30/2016 HYDROcodone-ac etaminophen (NORCO) 7.5-325 MG tablet 6 Active metaxalone (SKELAXIN) 800 MG tablet 6 Active CHANTIX 1 MG tabletIndicati ons:Smoking Cessation Therapy Reasons: Stop Smoking 6 Active Active Problems Problem Noted Date Diagnosed Date Genital disorder, female 03/06/2013 Numbness and tingling 03/06/2013 MS (multiple sclerosis) 03/06/2013 Immunizations Immunization Administration Dates Next Due INFLUENZA VACCINE 11/03/2012 [...] approx. 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 Gender Identity Not on file Sexual Orientation Not on file Occupation Industry Job Start Date Job End Date DISABLED Not on file Not on file Not on file Last Filed Vital Signs [...] 3:38 AM CDT Height 154.9 cm (5' 1) 05/06/2016 7:39 AM CDT Body Mass Index [...] SCREENING 1968 LIPID TESTING 1968 MAMMOGRAM 1968 HIV SCREENING 1983 HEPATITIS C SCREENING 02/25/1986 DTAP/TDAP/TD VACCINES (1 - Tdap) 1987 HEPATITIS B VACCINE (1 of 3 - 19+ 3-dose series) 1987 PNEUMOCOCCAL VACCINE 50+ (1 of 1 - PCV) 2018 ZOSTER VACCINE (1 of 2) 2018 COVID-19 VACCINE (1 - 2023-2 5 season) 2024 DEPRESSION SCREENING 09/11/2024 INFLUENZA VACCINE (Season Ended) 2025 08/12/2015, 07/15/2014, 11/03/2012 HIB VACCINE Aged Out No longer eligi ble based on patient's age to complete this topic HPV VACCINE Aged Out No longer eligi ble based on patient's age to complete this topic MENINGOCOCCAL (Group B) VACCINE SHARED DECISION-MAKING Aged Out No longer eligible based on patient's age to complete this topic MENINGOCOCCAL GROUPS A/C/Y/W VACCINE Aged Out No longer eligible b ased on patient's age to complete this topic Medical Devices Implanted Type Area Talent Rep Device Identifier Shelf Expiration Date Model / Serial / Lot Putty Dbm Progenix 5cc Implanted:Qty: 1 on 10/27/2015 by Martin Dahl MD at [facility]ine Lumbar Spinal [employer] 04/24/2017 [id number] / / [id number] Bone Canc Crush 15cc Implanted:Qty: 1 on 10/27/2015 by Martin Dahl MD at [facility] Spine Lumbar [employer] 05/04/2020 [id number] / / [id number] Corelink Locking Nuts Implanted:Qty: 4 on 10/27/2015 by Martin Dahl MD at [facility] Spine Lumbar [id number] / / Corelink Connectors Implanted:Qty: 4 on 10/27/2015 by Martin Dahl MD at [facility] Sp[facility] Lumbar [id number] / / Corelink 6.5 X 45 Screw Implanted:Qty: 4 on 10/27/2015 by Martin Dahl MD at [facility] Spine Lumbar [id number] / / Corelink 8mm Cage Implanted:Qty: 1 on 10/27/2015 by Martin Dahl MD at [facility] Lumbar [id number] / / Corelink Curved Saravanan 45mm Implanted:Qty: 2 on 10/27/2015 by Martin Dahl MD at [facility] Spine Lumbar [id number] / / Putty Grft Bone Dbm Progenix 1cc Implanted:Qty: 1 on 05/06/2016 by Martin Dahl MD at [facility] Spine Cervical Spinal [employer] 11/11/2017 [id number] / / [id number] Cage Cerv [place]/C Sys 12 X 12mm Implanted:Qty: 1 on 05/06/2016 by Martin Dahl MD at [facility] Sp[facility] Cervical [employer] 05/12/2016 [id number] / / [id number] Description:Plate and screws removed from uuppr level Insurance MEDICARE AETNA MEDICARE COMMERCIAL GENERIC Advance Directives * Full Code (Latest Code Status on File) Date Activated Date Inactivated Comments 05/06/2016 3:36 PM 05/07/2016 3:27 PM * Full Code Date Activated Date Inactivated Comments 10/27/2015 1:10 PM 10/29/2015 12:53 PM * FULL RESUSCITATION Date Activated Date Inactivated Comments 11/02/2012 11:09 AM 11/03/2012 11:42 AM Care Teams Fire Prevention Forester Relationship Specialty Start Date End Date Wilmer Li MD [address] [place] [address] PCP - General Internal Medicine 06/06/12 Cortney Hedrick MD Orthopedic Surgery 06/06/12 Kristi Marvin RN Industrial Cleaning Technician 10/28/15
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
--- OUTSIDE RECORDS SUMMARY | 2025-02-12 14:03 | XMS_ITS | Encounter Summary ---
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 Gender Identity Not on file Sexual Orientation Not on file Occupation Industry Job Start Date Job End Date DISABLED Not on file Not on file Not on file documented as of this encounter Plan of Treatment Not on file documented as of this encounter Visit Diagnoses Not on filedocumented in this encounter Care Teams Group Work Program Director Relationship Specialty Start Date End Date Wilmer Li MD [address] [place] [id number] PCP - General Internal Medicine 06/06/12 Cortney Hedrick MD Orthopedic Surgery 06/06/12 Kristi Marvin RN Explosive Ordnance Disposal Technician 10/28/15 documented as of this encounter
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
== END 2025-02-12 13:50 | disposition home or self-care (01) ==
PROVIDERS: Visit Provider Neurological Surgery
DX: M47.812 Spondylosis without myelopathy or radiculopathy, cervical region (principal); Z98.1 Arthrodesis status
CPT/HCPCS: 72131

== ENCOUNTER 2025-02-21 11:57 | Outpatient (CLI) | payer OTHER, MEDICARE, SELFPAY ==
--- OUTSIDE RECORDS SUMMARY | 2025-02-21 12:05 | XMS_ITS | Encounter Summary ---
Author Organization 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
--- OUTSIDE RECORDS SUMMARY | 2025-02-21 12:05 | XMS_ITS | Encounter Summary ---
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
--- OUTSIDE RECORDS SUMMARY | 2025-02-21 12:05 | XMS_ITS | Encounter Summary ---
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 Gender Identity Not on file Sexual Orientation Not on file Occupation Industry Job Start Date Job End Date DISABLED Not on file Not on file Not on file documented as of this encounter Plan of Treatment Not on file documented as of this encounter Visit Diagnoses Not on filedocumented in this encounter Care Teams Apprenticeship Consultant Relationship Specialty Start Date End Date Wilmer Li MD [address] [place] [address] PCP - General Internal Medicine 06/06/12 Cortney Hedrick MD Orthopedic Surgery 06/06/12 Kristi Marvin RN Leather Case Finisher 10/28/15 documented as of this encounter
--- OUTSIDE RECORDS SUMMARY | 2025-02-21 12:05 | XMS_ITS | Clinical Summary ---
Author Organization [facility] [employer] Address [facility] [place] [address] Care Team Providers Care Catalyst Operator Chief Name Role Phone Cortney Hedrick MD Unavailable [phone] Wilmer Li MD Primary Care Provider [phone] Kristi Marvin RN Unavailable [phone] Source Comments [facility],non-owned Affiliates and Associated Physician Practices is amultiple site organization consisting of ambulatory clinics and hospital sitesin [place], [place], [place] and [place]. This disclosure is being madepursuant to the Care Everywhere program and may not contain all information available regarding this patient. 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 Gender Identity Not on file Sexual Orientation [...] this topic Medical Devices Implanted Type Area Retail Performance Coach Device Identifier Shelf Expiration Date Model / Serial / Lot Putty Dbm Progenix 5cc Implanted:Qty: 1 on 10/27/2015 by Martin Dahl MD at [facility] Spine Lumbar Spinal [employer] 04/24/2017 [id number] / / [id number] Bone Canc Crush 15cc Implanted:Qty: 1 on 10/27/2015 by Martin Dahl MD at [facility] Spine Lumbar [employer] 05/04/2020 [id number] / / [id number] Corelink Locking Nuts Implanted:Qty: 4 on 10/27/2015 by Martin Dahl MD at [facility] Spine Lumbar [id number] / / Corelink Connectors Implanted:Qty: 4 on 10/27/2015 by Martin Dahl MD at [facility] Spine Lumbar [id number] / / Corelink 6.5 X 45 Screw Implanted:Qty: 4 on 10/27/2015 by Martin Dahl MD at [facility] Spine Lumbar [id number] / / Corelink 8mm Cage Implanted:Qty: 1 on 10/27/2015 by Martin Dahl MD at [facility] Spine Lumbar [id number] / / Corelink Curved Saravanan 45mm Implanted:Qty: 2 on 10/27/2015 by Martin Dahl MD at [facility] Spine Lumbar [id number] / / Putty Grft Bone Dbm Progenix 1cc Implanted:Qty: 1 on 05/06/2016 by Martin Dahl MD at [facility] Spine Cervical Spinal [employer] 11/11/2017 [id number] / / [id number] Cage Cerv [place]/C Sys 12 X 12mm Implanted:Qty: 1 on 05/06/2016 by Martin Dahl MD at [facility] Spine Cervical [employer] 05/12/2016 [id number] / / [id number] Description:Plate and screws removed from uuppr level [...] 11:09 AM 11/03/2012 11:42 AM Care Teams Catalyst Operator Chief Relationship Specialty Start Date End Date Wilmer Li MD [address] [place] [address] PCP - General Internal Medicine 06/06/12 Cortney Hedrick MD Orthopedic Surgery 06/06/12 Kristi Marvin RN Research Technician 10/28/15
--- OUTSIDE RECORDS SUMMARY | 2025-02-21 12:05 | XMS_ITS | Encounter Summary ---
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 DENTURE PROCESSOR Gender Identity Not on file Sexual Orientation Not on file Occupation Industry Job Start Date Job End Date DISABLED Not on file Not on file Not on file documented as of this encounter Plan of Treatment Not on file documented as of this encounter Visit Diagnoses Not on filedocumented in this encounter Care Teams Clay Products Machine Operator Relationship Specialty Start Date End Date Wilmer Li MD [address] [place] [address] PCP - General Internal Medicine 06/06/12 Cortney Hedrick MD Orthopedic Surgery 06/06/12 Kristi Marvin RN Endodontic Assistant 10/28/15 documented as of this encounter
--- OUTSIDE RECORDS SUMMARY | 2025-02-21 12:05 | XMS_ITS | Clinical Summary ---
Author Organization [facility] Address [address] [place] [phone] Phone Care Team Providers Care Nursing Home Physician Name Role Phone Provider, None Primary Care Provider Unavailabl e Allergies No known active allergies Medications ALPRAZolam (XANAX) 0.5 MG Tablet 05/23/2024 Active atorvastatin (LIPITOR) 10 MG Tablet 05/22/2024 Active bisacodyl 5 MG Tablet Delayed Response 05/22/2024 Active Desvenlafaxine Succinate 100 MG TABLET SR 24 HR 05/22/2024 Active ergocalciferol (VITAMIN D) 30911 UNIT Capsule TAKE 1 CAPSULE BY MOUTH [...] complete this topic Insurance CIG Care Teams Nursing Home Physician Relationship Specialty Start Date End Date Provider, None OR PCP - General 06/12/24
--- OUTSIDE RECORDS SUMMARY | 2025-02-21 12:05 | XMS_ITS | Continuity of Care Document ---
Author Organization [facility] Address [address] [place] [address] Phone Care Team Providers Care Driver Education Road Instructor Name Role Phone Savage Patel MD Unavailable Unavailable Advance Directives Directive Yes / No Effective Date File Name No Information Encounters Encounter Description Practice Location Reason(s) For Visit Diagnoses Date Provider Providers Copied on Encounter [facility], [address] [place] [address], [address] [place] [address], tel:[phone] [facility] No Information Amanda SavageSteve [address] [place], [place], [id number] , . tel: [phone] [facility], [address] [place] [address], [id number], tel:[phone] [facility] OTH ADV EFF MED/BIO SUBCERVICALGIA Amanda Nguyen [address] [place], [place], [id number] , . tel: [phone] Family History Family Member Type Diagnosis Age At Onset No Information Payers Payer name Insurance type Covered green party ID Authoriza tion(s) No Information Social [...]
--- OUTSIDE RECORDS SUMMARY | 2025-02-21 12:05 | XMS_ITS | Encounter Summary ---
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 Gender Identity Not on file Sexual Orientation Not on file Occupation Industry Job Start Date Job End Date DISABLED Not on file Not on file Not on file documented as of this encounter Plan of Treatment Not on file documented as of this encounter Visit Diagnoses Not on filedocumented in this encounter Care Teams Assistant Pastry Chef Relationship Specialty Start Date End Date Wilmer Li MD [address] [place] [address] PCP - General Internal Medicine 06/06/12 Cortney Hedrick MD Orthopedic Surgery 06/06/12 Kristi Marvin RN Accounting Manager Controller 10/28/15 documented as of this encounter
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
--- NOTE | 2025-02-21 12:21 | ECG_ITS ---
Test Date: 2025-02-21 13:00:13 Measurements Intervals [place] Rate: 65 P: 0 AK: 0 QRS: 145 QRSD: 104 T: 63 QT: 419 QTc: 438 Interpretive Statements SINUS RHYTHM DELAYED PRECORDIAL R/S TRANSITION LOW QRS VOLTAGE IN PRECORDIAL LEADS BORDERLINE ST-T WAVE ABNORMALITY- ANTEROLATERAL LEADS BASELINE ARTIFACT- I, II, III, AVR, AVL, AVF, V1-V6 BORDERLINE ECG No previous ECG available for comparison Electronically Signed On 02-21-2025 13:17:57 CDT by Kimani Pressley D.O.
[2025-02-21 13:09] LABS: Hematocrit 43.1 % (37.0-47.0); Hemoglobin 14.4 g/dL (12.0-15.0); Mean Corpuscular HGB Conc 33.4 g/dl (32-36); Mean Corpuscular Hemoglobin 32.2 pg (26-34); Mean Corpuscular Volume 96.4 fl (80-100); Mean Platelet Volume 10.5 fl (7.4-10.4); Platelet Count Result 304 k/mm3 (150-375); Red Blood Count 4.47 M/mm3 (4.2-5.4); Red Cell Distribution Width 12.3 % (11.5-14.5); White Blood Count 8.9 K/mm3 (4.5-10.0)
[2025-02-21 13:18] LABS: Anion Gap 7 mmol/L (4-12); Blood Urea Nitrogen 13 mg/dL (7-17); Calcium 9.4 mg/dL (8.4-10.2); Carbon Dioxide 29 mmol/L (22-30); Chloride 102 mmol/L (98-107); Estimated Glomerular Filt Rate > 60; Glucose 102 mg/dL (65-110); Potassium 4.2 mmol/L (3.4-5.0); Sodium 138 mmol/L (137-145)
[2025-02-21 13:22] LABS: Add Urine Microscopic? YES; Appearance Urine Clear (Clear); Bacteria Urine 3+ /hpf; Bilirubin Urine Negative (Negative); Blood Urine Negative (Negative); Budding Yeast Urine Present /hpf; Color Urine Yellow (Yellow); Glucose Urine UA Negative (Negative); Ketones Urine Trace mg/dL (Negative); Leukocyte Esterase Ur Trace LEU/UL (Negative); Need Manual Microscopic Reviewed; Nitrate Urine Negative (Negative); Non Pathogenic Casts 0-2; Protein Urine Negative (Negative); Specific Grav Ur 1.026 (1.001-1.035); Squamous Epithelial Cell Urine Few /hpf (Few); WBC Urine 0-5 /hpf (0-3); pH Urine 5.5 (5.0-9.0)
[2025-02-21 13:26] LABS: Prothrombin Time 13.1 Seconds (11.1-14.7)
[2025-02-21 13:27] LABS: Partial Thromboplastin Time 30.1 Seconds (22.3-36.8)
== END 2025-02-21 11:58 | disposition home or self-care (01) ==
PROVIDERS: Visit Provider Neurological Surgery
DX: Z01.818 Encounter for other preprocedural examination (principal); M48.061 Spinal stenosis, lumbar region without neurogenic claudication; M47.816 Spondylosis without myelopathy or radiculopathy, lumbar region; M51.26 Other intervertebral disc displacement, lumbar region; Z98.1 Arthrodesis status; Z87.891 Personal history of nicotine dependence; R94.31 Abnormal electrocardiogram [ECG] [EKG]
CPT/HCPCS: 36415; 80048; 81001; 85027; 85610; 85730; 86850; 86900; 86901; 93005

== ENCOUNTER 2025-03-04 00:30 | Day surgery (SDC) | payer OTHER, MEDICARE, SELFPAY ==
[2025-02-21 12:13] VITALS: BP 127/70; PULSE 73; RESP 16; TEMP 36.3; O2SAT 98; BMI 34.6
--- NOTE | 2025-02-21 12:42 | PC.NURSE ---
Report to the Outpatient Waiting Room, entrance under the green pavilion located off [facility], at time __0600am on date __03/04/25 . Planned Procedure Time: ___0730am .? Time changes happen often and if your time is changed the preop area will call you the afternoon before. - You and your visitor will be asked to self-screen and do not enter if you have any COVID symptoms. Please call surgeon if you need to reschedule. - A mask is optional within the hospital at this time. Patients may have clear liquids (water, carbonated beverages, clear teas, apple juice) until 3 hours prior to surgery with a maximum of 20 ounces. - No food from midnight until time of surgery and no smoking, or chewing tobacco (or any form of nicotine). No chewing gum, candy or mints. (0430) Take only the following medications with a SIP of water on the morning of surgery: ____Desvenlafaxine, Hydrocodone if needed DO NOT STOP ANY OF YOUR OTHER PRESCRIPTION MEDICATIONS PRIOR TO SURGERY EXCEPT THE FOLLOWING Hold all vitamins and supplements for 3 days per anesthesiologist. Medications to discontinue per physician NONE Date to take last dose NONE Please no make-up, nail upper sorbian, hairspray, perfume, deodorant, or body powder the day of surgery.? No jewelry (including any body piercings) or valuables the day of surgery, leave them at home.? Please take a shower or bath the night before, or the morning of, surgery with an antibacterial soap.? Wear comfortable, loose fitting clothing.? Overnight bag, Robe, good tennis shoes, cell phone bank and savings securities trader - Jewelry must be removed prior to entering the operating room.? Rings and piercings that are not removed may be cut off. - The hospital will not accept responsibility for valuables.? - Please leave all valuables, including medications, at home the day of surgery. If you are going home after surgery, a licensed tractor trailer truck driver must drive you home.? - NO public transportation without another adult if you receive anesthesia. - We recommend that an adult stay with you for 24 hours following discharge. - We also recommend that you do not drive, make important decision, drink alcoholic beverages, or take any drugs that were not prescribed by your health care provider for at least 24 hours after your discharge time. Follow any additional instructions given to you from your surgeon. Telephone instructions given to ___Patient and asked if any additional questions and then verbalized understanding. Patient advised to call surgeon office or pre surgery nurse liaison [phone] if any additional questions.
[2025-03-04] VITALS (16 sets, daily range): BP systolic 101–151; BP diastolic 59–92; PULSE 64–107; RESP 10–20; TEMP 35.6–37; O2SAT 95–100
--- NOTE | ~2025-03-04 | XR_ITS ---
INTRAOPERATIVE FLUOROSCOPY: CLINICAL HISTORY: 55 years old Female; POSTERIOR LUMBAR INTERBODY FUSION L3-4, L5-S1 PROCEDURE COMMENTS: Limited intraoperative fluoroscopy of the lumbar spine was performed. CUMULATIVE DOSE: 5 mGy FLUOROSCOPY TIME: 5.8 seconds FINDINGS/IMPRESSION: Please refer to operative note for further details. Reviewed, dictated and finalized at location A.
[2025-03-04] MEDS: LACTATED RINGERS 1,000 ML 30 ML IV CONT ×2 (06:15→11:23)
--- NOTE | 2025-03-04 06:52 | P.PNAN_ITS ---
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, Patient Data Age: 55 Gender: F Height: 1.55 m Weight: 82.6 kg Last Vital Signs Temp 36.6 C 03/04/25 06:00 Pulse 64 03/04/25 06:00 Resp 18 03/04/25 06:00 BP 138/79 03/04/25 06:00 Pulse Ox 97 03/04/25 06:00 O2 Del Method Room Air 03/04/25 06:00 Allergies Allergy/AdvReac Type Severity Reaction Status Date / Time No Known Allergies Allergy Verified 03/04/25 06:46 Home Medications ?Medication ?Instructions ?Recorded ?Confirmed ?Type hydrocodone 10 mg-acetaminophen 1 tablet PO DIRECTED 01/23/23 03/04/25 History 325 mg tablet alprazolam 0.5 mg tablet (Xanax) 0.5 mg PO QHS PRN sleep 11/05/24 02/21/25 History desvenlafaxine succinate 100 mg 100 mg PO DAILY 11/05/24 03/04/25 History tablet,extended release 24 hr zolpidem 6.25 mg tablet,extended 6.25 mg PO HS 02/21/25 03/04/25 History release,multiphase Patient hx anesthesia problems: none Family hx anesthesia problems: none Results Review: All pre-operative results and documents have been reviewed as part of the pre- operative evaluation. [facility] Past Medical History Medical History (Updated 03/04/25 @ 06:53 by Dorian Florez DO) Chronic, continuous use of opioids Pre-diabetes Hyperlipidemia Chronic neuropathic pain Acute arthritis Anxiety Surgical History Surgical History (Updated 03/04/25 @ 06:53 by Dorian Florez DO) Hx of fusion of cervical spine Family History Family History (Updated 11/05/24 @ 10:40 by Laura Ibarra MA) Father Alcoholism Cancer Diabetes mellitus Heart disease Mother Hypertension COPD (chronic obstructive pulmonary disease) Thyroid disorder Sibling Asthma Grandparent Alcoholism Heart disease Social History Social History (Updated 11/05/24 @ 10:57 by Laura Ibarra MA) Smoking packs per day: 1 Smoking cigarettes per day: 20.0 Years smoked: 43 Smoking pack-years: 43.00 Smoking status: Former smoker Tobacco type: cigarettes Smoking end date: 09/11/21 Additional smoking assessment comments: pt quit 2021 Alcohol intake: never Substance use: current Substance use type: marijuana Other substance usage details: Smokes daily for pain and anxiety Living arrangements: with family Additional living arrangements comments: Spiritual care concerns: No Anes - Eval Final PreProcedure Day of Procedure 03/04/25 06:52 Patient weight: obese Heart: regular rate and rhythm Lungs: clear to auscultation Airway: Mallampati scale class II Neurological: alert and oriented Last oral intake: >/= 8 hours ASA classification: III Emergent: no Anesthetic plan: proceed Anesthesia type and monitoring: general ETT and standard monitoring Results Review: All pre-operative results and documents have been reviewed as part of the pre- operative evaluation. Informed Consent: The patient's anesthetic plan and its attendant risks and benefits were discussed with the patient/family/POA. Questions were solicited and answers provided to the satisfaction of the patient/family/POA.
--- NOTE | 2025-03-04 07:59 | PM.IMHP ---
H&P: HPI History of Present Illness Date/Time: 03/04/25 07:59 Chief Complaint: back and leg pain Narrative: Moraima is a 54-year-old female past medical history significant for spinal cord injury related to a cervical epidural steroid injection and and L4-5 posterior lumbar interbody fusion done elsewhere years ago. She has also had a series of neck operations. She states that none of these operations helped her significantly or permanently. However, she has progressive pain for the last 4-5 years in her back radiating into her buttock and down the left greater than right lower extremity. At times radiates into the anterior thigh down to the knee and at other times down the back of the leg. It does seem related to position, especially sustained postures, and activity such as standing and walking. The even sustained sitting causes pain. The discomfort is always present it sometimes and is at times quite severe and limiting for her. It is not associated with specific muscle group weakness although she does have a numbness from her chest down related to the spinal cord issue years ago. She does not report any new bowel or bladder difficulty or other constitutional problems. She has participated in injections in the past but not recently. She has participated in physical therapy in the past. Review of Systems Review of Systems: All systems reviewed & are unremarkable except as noted in HPI and below Denies chills, Denies fever, Denies weight gain and Denies weight loss Eyes Denies change in vision and Denies diplopia ENT Denies disequilibrium Card Denies chest pain and Denies dyspnea Resp Denies cough and Denies dyspnea GI Denies abdominal pain, Denies change in bowel habits, Denies fecal incontinence and Denies vomiting Denies hematuria, Denies oliguria, Denies difficulty urinating, Denies dysuria, Denies urinary frequency, Denies urinary hesitancy, Denies urinary incontinence and Denies urinary urgency Musc Reports as per HPI Skin/ Breast Reports system reviewed and no additional complaints, except as documented Neuro Reports as per HPI Psych Reports no additional complaints, Denies depression and Denies hopelessness Endo Reports no additional complaints and Denies polyuria Minesh/ Lymph Reports no additional complaints Aller/ Immun Reports no additional complaints [facility], LAT[facility] Past Medical History Medical History (Updated 03/04/25 @ 06:53 by Dorian Florez DO) Chronic, continuous use of opioids Pre-diabetes Hyperlipidemia Chronic neuropathic pain Acute arthritis Anxiety Surgical History Surgical History (Updated 03/04/25 @ 06:53 by Dorian Folrez DO) Hx of fusion of cervical spine Family History Family History (Updated 11/05/24 @ 10:40 by Laura Ibarra MA) Father Alcoholism Cancer Diabetes mellitus Heart disease Mother Hypertension COPD (chronic obstructive pulmonary disease) Thyroid disorder Sibling Asthma Grandparent Alcoholism Heart disease Social History Social History (Updated 11/05/24 @ 10:57 by Laura Ibarra MA) Smoking packs per day: 1 Smoking cigarettes per day: 20.0 Years smoked: 43 Smoking pack-years: 43.00 Smoking status: Former smoker Tobacco type: cigarettes Smoking end date: 09/11/21 Additional smoking assessment comments: pt quit 2021 Alcohol intake: never Substance use: current Substance use type: marijuana Other substance usage details: Smokes daily for pain and anxiety Living arrangements: with family Additional living arrangements comments: Spiritual care concerns: No Meds Home Medications and Allergies Home Medications ?Medication ?Instructions ?Recorded ?Confirmed ?Type hydrocodone 10 mg-acetaminophen 1 tablet PO DIRECTED 01/23/23 03/04/25 History 325 mg tablet alprazolam 0.5 mg tablet (Xanax) 0.5 mg PO QHS PRN sleep 11/05/24 02/21/25 History desvenlafaxine succinate 100 mg 100 mg PO DAILY 11/05/24 03/04/25 History tablet,extended release 24 hr zolpidem 6.25 mg tablet,extended 6.25 mg PO HS 02/21/25 03/04/25 History release,multiphase Allergies Allergy/AdvReac Type Severity Reaction Status Date / Time No Known Allergies Allergy Verified 03/04/25 06:46 Vital Signs Vital Signs - 24 hr 03/04/25 06:00 Temperature 97.8 F Pulse Rate 64 Respiratory Rate 18 Blood Pressure 138/79 Pulse Oximetry 97 Oxygen Delivery Room Air Exam Narrative: Exam Exam Const Other: General: cooperative, no acute distress, well developed, alert and awake Orientation/Consciousness: oriented to person, oriented to place and oriented to time Constitutional Limitations: no limitations Other: The patient is a normally developed, normal appearing female sitting on the examination table in no acute distress. She is awake, alert, and oriented x3 with good fund of knowledge, recall of events, and fluent speech. HENMT Head: normocephalic and atraumatic Ears: external ears normal Face/Nose/Sinus: Normal external nose present Eyes Eyelids: eyelids normal Pupils: Yes Pupils normal by confrontation EOM: EOMs intact bilaterally Neck General: Yes no meningeal signs, Yes supple and Yes no JVD Resp Effort/Inspection: normal respiratory effort and able to speak in complete sentences Cardio Rate: Yes regular rate GI Inspection: No abdominal distension Musc Other: Examination of the back reveals no tenderness. Range of motion of the back is full without pain in forward flexion, extension, and lateral rotation to both sides. Straight leg raise is negative bilaterally. Baljeet?s test is negative bilaterally. Skin General: normal color Neuro General: Yes oriented to person, Yes oriented to place, Yes oriented to time, Yes normal cognition and Yes no meningeal signs Cranial Nerves: Yes CN's II-XII intact bilaterally Other: Motor: Strength is normal, 5/5, throughout all muscle groups of the bilateral upper and lower extremities to direct confrontation. Sensory: Sensation is intact to light touch throughout the upper and lower extremities bilaterally. Reflexes: Deep tendon reflexes are Slightly hyperactive at the knees and ankles bilaterally. Gait: Gait, station, and transfers are independent and steady for short periods of time and over short distances. Psych Appearance: grossly normal Mental status: Yes mental status grossly normal Mood: congruent mood Affect: Yes normal affect Speech/Movement: Normal speech and movement present Attitude: Yes cooperative Thought Content: Normal thought content present Review of studies: MRI of the lumbar spine was personally reviewed by me. This demonstrates a left-sided disc herniation at L3-4 above an L4-5 posterior lumbar interbody fusion at L4-5. There is a left-sided foraminal disc herniation at L5-S1 which compresses the exit L5 nerve root. At L3-4 the traversing L4 nerve root is affected. There is also junctional spondylosis at L3-4. Assessment and Plan Assessment and plan (1) Status post lumbar spinal arthrodesis: Code(s): Z98.1 - Arthrodesis status Status: Acute (2) Lumbar spondylosis: Code(s): M47.816 - Spondylosis without myelopathy or radiculopathy, lumbar region Status: Acute (3) Lumbar disc herniation: Code(s): M51.26 - Other intervertebral disc displacement, lumbar region Status: Acute Plan Moraima is a 54-year-old female who has back and left lower extremity pain likely related to the issues at L3-4 and L5-S1 above and below previous fusion. Surgically it makes the most sense to fuse these levels as there is an adjacent level fusion in the likely recurrent issues that will happen if they are not fused. She could have a sacroiliac joint problem but this is a hard structure blame for her issues given the significant and concurrent issues at L3-4 L5-S1. I therefore described her L3-4 and L5-S1 posterior lumbar interbody fusion with revision of the posterior instrumention at L4-5, its risks, potential benefits, the operative and postoperative course in detail and answered all his questions personally. We discussed risks including but not limited to permanent neurologic deficit secondary to nerve root injury, need for reoperation secondary to infection, bleeding, CSF leak, adjacent level disease, recurrent residual pathology or instability, failure of the procedure to relieve her pain or symptoms, persistent pain, medical complications related anesthesia or surgery, etc.. she indicates understanding and elects to proceed with the operation.
--- NOTE | 2025-03-04 08:01 | WPDHPUPDATE1 ---
History and Physical Update Update Date/Time: 03/04/25 08:01 History and Physical has been reviewed, including an updated exam of the patient. There are NO changes in the patient's condition. Risks, benefits, and alternatives have been discussed and questions answered. Patient agrees to proceed with procedure.
[2025-03-04] MEDS: ceFAZolin 2 GM/D5W 50 ML 2 GM/50 ML BAG IVPB (08:05)
[2025-03-04] MEDS: LIDO 1%/EPINEPHRINE 1:100,000 50 ML VIAL 10 ML INFILTRATE (08:43)
--- NOTE | 2025-03-04 11:09 | W.PM.PROC2 ---
Procedure Note - Detailed Date of Procedure 03/04/25 Pre-op Diagnosis L3-4 junctional stenosis, Post-op Diagnosis Same Procedure Performed L3-4 and L5-S1 posterolateral instrumented fusion, revision of posterior instrumentation L4-5, use of 7 D stereotactic guidance Surgeon Carl Llanos MD Anesthesia General Description of Procedure Patient was brought to the operating room in supine position, was sedated, intubated placed under general anesthesia in routine fashion. She was then turned into the prone position on an open Ashish table. The of operation on her back was examined, marked for incision, prepped and draped in routine sterile fashion. Incision was marked over the L3 through S1 spinous processes in the midline. This area was injected with 0.5% lidocaine with 1 to [id number] epinephrine. Intravenous antibiotics given prior to incision. Incision was made with a 10 blade scalpel down to the lumbodorsal fascia. A subperiosteal dissection of the muscle soft tissue away from spinous process and lamina was performed with a subperiosteal elevator and Bovie cautery at L4 to. The sacrum was identified and Bovie cautery used to perform a subperiosteal dissection of the muscle soft tissue away from sacrum down to the level of the S1 the laminectomy that had been performed previously. It appeared that L3 and L5 laminectomies had also been performed as no spinous process or lamina was identified. It was therefore deemed to be too difficult and dangerous to perform interbody fusions as a clear path to the disc space was not identifiable at L3-4 or L5-S1. Therefore posterolateral fusions were performed. Lamina was uncovered at L2. The transverse processes were identified at L3, L4, L5 and the sacrum bilaterally. The elizabeth was removed on the right from the L4-[address] The 7 D reference frame was attached into the screw head and secured position. Reference points were taken off of the instrumentation and. Accuracy was determined to be good. Pedicle screws were placed at L3 and S1 by a using the 70 stereotactic guidance to choose an entry point trajectory. The cortex was pierced with a Midas Jarrod drill. Trajectories were marked and the pedicle probe was used to cannulate the pedicle. This was checked for continuity the ball probe. Each screw hole was tapped with a 5.5 mm tap. A 6.5 x 50 mm screw was placed in each L3 pedicle and 6.5 x 40 mm screw into each S1 pedicle. The reference arc was then removed. Using the appropriate drivers the instrumentation at L4-5 was removed. Under appropriate retraction the transverse processes at L3-L4 L5 and S1 were decorticated and magnetos packed against these decorticated surfaces. This was done bilaterally. The screws were then replaced at L4-L5. These were 6.5 x 45 mm screws. The right L4 screw was not replaced because of its position being too medial to passed the elizabeth through all 4 screw heads. 90 mm rods were placed in the screw heads and secured in position using the caps that purpose. These were definitively tightened with a torque and anti torque device. A verifying x-rays obtained to verify good position of the instrumentation. The L3-4 level was distracted before final tightening. The wound was copiously irrigated with bacitracin irrigation all bleeding stopped with bipolar and Bovie cautery and Gelfoam thrombin powder. The wound was then closed in layered fashion over a medium Hemovac drain left in the subfascial position buried out the inferior right of the incision. 2-0 Vicryl interrupted sutures placed in the lumbodorsal fascia and Jeff's layer. 3-0 Vicryl buried interrupted sutures were placed in the dermis and the skin was closed with a running 4-0 Monocryl subcuticular stitch and dressed with Dermabond. The patient was allowed to wake up in the operating room and was taken to the recovery room in stable condition. There were no immediate complications of this operation. All counts were reported correct at the end of the case. Blood loss was 100 cc. The patient was neurologically at her baseline postoperatively. Estimated Blood Loss 100 Drains Yes Complications None Condition Stable Disposition PACU [facility] Billing Surgery - Charge Forward: Surgery Billing
[2025-03-04] MEDS: fentaNYL CITRATE INJ (*CRX) 100 MCG/2 ML VIAL 25 MCG IV PUSH ×2 (11:38→11:40)
[2025-03-04] MEDS: HYDROmorphone HCL INJ (*CRX) 1 MG/ML SYR 0.5 MG IV PUSH ×4 (11:47→12:04)
[2025-03-04] MEDS: diazePAM INJ (*CRX) 10 MG/2 ML SYRINGE 2.5 MG IV PUSH (12:15)
[2025-03-04] MEDS: HYDROcodone/acetaminophen (*CRX) 10-325 MG TABLET 1 TAB PO ×3 (14:05→22:21)
[2025-03-04] MEDS: CYCLOBENZAPRINE HCL 10 MG TABLET PO (14:08)
[2025-03-04] MEDS: ceFAZolin 1 GM/NS 50 ML 1 GM/50 ML BAG IVPB ×2 (17:14→23:56)
[2025-03-04] MEDS: DOCUSATE SODIUM 100 MG CAPSULE PO (20:56)
[2025-03-04] MEDS: ZOLPIDEM TARTRATE (*CRX) 5 MG TABLET PO (20:56)
[2025-03-05 02:06] VITALS: BP 99/65; PULSE 80; RESP 12; TEMP 36.9; O2SAT 96
[2025-03-05] MEDS: HYDROcodone/acetaminophen (*CRX) 10-325 MG TABLET 1 TAB PO ×4 (03:24→15:54)
[2025-03-05 06:06] VITALS: BP 104/66; PULSE 76; RESP 16; TEMP 36.8; O2SAT 99
[2025-03-05] MEDS: ceFAZolin 1 GM/NS 50 ML 1 GM/50 ML BAG IVPB (07:52)
[2025-03-05] MEDS: DOCUSATE SODIUM 100 MG CAPSULE PO (07:59)
[2025-03-05] MEDS: DESVENLAFAXINE SUCCINATE 50 MG TAB.ER.24H 100 MG PO (07:59)
--- NOTE | 2025-03-05 10:05 | PC.NURSE ---
Patient called us into the room her hemovac fell out. Site not bleeding 2x2 gauze pad used to cover site. Dr Llanos office notified.
[2025-03-05 10:06] VITALS: BP 128/68; PULSE 102; RESP 18; TEMP 36.1; O2SAT 100
[2025-03-05 13:52] VITALS: BP 112/65; PULSE 87; RESP 20; TEMP 36.6; O2SAT 100
--- NOTE | 2025-03-05 14:53 | WPDNEUROSGPN ---
Progress Note: A&P Assessment and Plan (1) Status post lumbar spinal arthrodesis: Code(s): Z98.1 - Arthrodesis status Status: Acute Plan -Discharge home today -Activity and wound care precautions reviewed at bedside -Follow up with Dr. Llanos in clinic in 6 weeks Subjective Date/time seen: 03/05/25 14:53 Interval history: Having expected incisional pain which is reasonably controlled with oral medication. She has walked multiple times. Voiding independently and tolerating oral intake. Drain was accidentally pulled out this morning Review of Systems Review of Systems: All systems reviewed & are unremarkable except as noted in HPI and below Exam Narrative: AOx4 Incision c/d/i Full strength lower extremities Sensation intact to light touch Objective Data Vital Signs Vital Signs: Vital Signs - 24 hr 03/04/25 15:27 03/04/25 20:00 03/04/25 22:06 Temperature 96.4 F L 98.6 F Pulse Rate 107 H 88 88 Respiratory Rate 18 16 16 Blood Pressure 133/91 H 108/59 L Pulse Oximetry 95 97 97 Oxygen Delivery Room Air 03/05/25 02:06 03/05/25 06:06 03/05/25 10:06 Temperature 98.4 F 98.2 F 97.0 F L Pulse Rate 80 76 102 H Respiratory Rate 12 16 18 Blood Pressure 99/65 L 104/66 128/68 Pulse Oximetry 96 99 100 Oxygen Delivery 03/05/25 13:52 Temperature 97.9 F Pulse Rate 87 Respiratory Rate 20 Blood Pressure 112/65 Pulse Oximetry 100 Oxygen Delivery Intake/Output Intake/Output: Intake & Output 03/02/25 03/03/25 03/04/25 03/05/25 23:59 23:59 23:59 23:59 Intake Total 790 168 Output Total 150 730 Balance 640 -562 Meds/Results Medications: Active Medications Generic Name Dose Route Start Last Admin Trade Name Freq PRN Reason Stop Dose Admin Hydrocodone Bitart/Acetaminophen 1 tab 03/04/25 11:06 Hydrocodone/Acetaminophen (*Crx) 5-325 Mg Tablet PO Q4H PRN Mild Pain (1-3) Hydrocodone Bitart/Acetaminophen 1 tab 03/04/25 11:06 03/05/25 11:42 Hydrocodone/Acetaminophen (*Crx) 10-325 Mg Tablet PO 1 tab Q4H PRN Administration Moderate Pain (4-6) Al Hydrox/Mg Hydrox/Simethicone 20 ml 03/04/25 11:06 Mag Hydrox/Al Hydrox/Simeth 30 Ml Udc PO Q4H PRN Indigestion/Heartburn Alprazolam 0.5 mg 03/04/25 15:09 Alprazolam (*Crx) 0.5 Mg Tablet PO QHS PRN sleep Bisacodyl 10 mg 03/04/25 11:06 Bisacodyl 10 Mg Suppository RECTAL DAILY PRN Constipation Cyclobenzaprine HCl 10 mg 03/04/25 11:06 03/04/25 14:08 Cyclobenzaprine Hcl 10 Mg Tablet PO 10 mg TID PRN Administration Muscle Spasms Desvenlafaxine Succinate 100 mg 03/05/25 09:00 03/05/25 07:59 Desvenlafaxine Succinate 50 Mg Tab.Er.24h PO 100 mg DAILY JENNIFER Administration Docusate Sodium 100 mg 03/04/25 21:00 03/05/25 07:59 Docusate Sodium 100 Mg Capsule PO 100 mg Q12HR JENNIFER Administration Lactated Ringer's 1,000 mls @ 30 mls/hr 03/04/25 07:15 03/04/25 11:23 Lr - Lactated Ringers Iv IV CONT Infused .Q24H JENNIFER Infusion Cefazolin Sodium 1 gm in 50 mls @ 100 mls/hr 03/04/25 16:00 03/05/25 07:52 Ancef 1 Gm/Ns 50 Ml IVPB 100 mls/hr Q8H JENNIFER Administration Potassium Chloride/Dextrose/Sod Cl 1,000 mls @ 100 mls/hr 03/04/25 11:10 03/04/25 20:33 Kcl 20 Meq/D5/0.45% Sod Chl IV CONT Not Given .Q10H JENNIFER Ondansetron HCl 4 mg 03/04/25 11:06 Ondansetron Inj 4 Mg/2 Ml Vial IV PUSH Q8H PRN Nausea And Vomiting Senna/Docusate Sodium 1 tab 03/04/25 11:06 Senna/Docusate Sodium Tablet PO HS PRN Constipation Zolpidem Tartrate 5 mg 03/04/25 21:00 03/04/25 20:56 Zolpidem Tartrate (*Crx) 5 Mg Tablet PO 5 mg HS JENNIFER Administration
== END 2025-03-05 16:30 | disposition home or self-care (01) ==
LOC: ANHSURGERY 06:00 → ANH3MEDSUR 16:53
PROVIDERS: Visit Provider Neurological Surgery
PROC: (CPT 22612; principal; 2025-03-04 07:30)
DX: M47.816 Spondylosis without myelopathy or radiculopathy, lumbar region (principal); M51.26 Other intervertebral disc displacement, lumbar region; E78.5 Hyperlipidemia, unspecified; R73.03 Prediabetes; M19.90 Unspecified osteoarthritis, unspecified site; F12.90 Cannabis use, unspecified, uncomplicated; E66.9 Obesity, unspecified; Z68.34 Body mass index [BMI] 34.0-34.9, adult; Z79.891 Long term (current) use of opiate analgesic; Z98.1 Arthrodesis status; Z87.891 Personal history of nicotine dependence; Z80.9 Family history of malignant neoplasm, unspecified; Z82.49 Family history of ischemic heart disease and other diseases of the circulatory system
CPT/HCPCS: 22612; 22614 ×2; 22842; 61783; 97161; 97535; 99199; A9270; C1713; J0690; J1100; J1171; J2003; J2004; J2250; J2405; J2704; J3010; J3360; J7120

== ENCOUNTER 2025-04-14 09:46 | Outpatient (CLI) | payer OTHER, MEDICARE, SELFPAY ==
--- NOTE | ~2025-04-14 | XR_ITS ---
XR lumbar spine 2-3V 04/14/2025 10:06 Indication: Arthrodesis status Procedure: 3 views lumbar spine Comparison: 11/05/2024 Findings: Status post fusion at L3-S1. Pedicle screws intact. Prosthetic disc device present at L4-5. There are laminectomy changes at L3-L5. There is lateral bone mass graft these levels. There is mode rate upper lumbar spondylosis. Sacral foramen are symmetric. Visualized pelvic structures are unremar kable. Impression: 1: Status post posterior spinal fusion at L3-S1 with associated laminectomy changes. Reviewed, dictated and finalized at location A. Impression: 1: Status post posterior spinal fusion at L3-S1 with associated laminectomy vlad durán
--- OUTSIDE RECORDS SUMMARY | 2025-04-14 10:13 | XMS_ITS | Encounter Summary ---
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 Gender Identity Not on file Sexual Orientation Not on file Occupation Industry Job Start Date Job End Date DISABLED Not on file Not on file Not on file documented as of this encounter Plan of Treatment Not on file documented as of this encounter Visit Diagnoses Not on filedocumented in this encounter Care Teams Mechanic And Welder Relationship Specialty Start Date End Date Wilmer Li MD [address] [place] [id number] PCP - General Internal Medicine 06/06/12 Cortney Hedrick MD Orthopedic Surgery 06/06/12 Kristi Marvin RN Fire Extinguisher Repairer 10/28/15 documented as of this encounter
--- OUTSIDE RECORDS SUMMARY | 2025-04-14 10:13 | XMS_ITS | Clinical Summary ---
Author Organization [facility] Address [address] [place] [phone] Phone Care Team Providers Care Treasury Representative Name Role Phone Provider, None Primary Care Provider Unavailabl e Allergies No known active allergies Medications ALPRAZolam (XANAX) 0.5 MG Tablet 05/23/2024 Active atorvastatin (LIPITOR) 10 MG Tablet 05/22/2024 Active bisacodyl 5 MG Tablet Delayed Response 05/22/2024 Active Desvenlafaxine Succinate 100 MG TABLET SR 24 HR 05/22/2024 Active ergocalciferol (VITAMIN D) 05861 UNIT Capsule TAKE 1 CAPSULE BY MOUTH [...] Comments Hepatitis C Virus (HCV) Screening 1968 Mammogram 1968 Hepatitis B Immunization (1 of 3 - 19+ 3-dose series) 1987 Cologuard 2013 Colonoscopy 2013 Colorectal Cancer Screening 2013 Immunochemical Fecal Occult Blood 2013 Pneumococcal Immunization (5 0+ years) (1 of 1 - PCV) 2018 Zoster Immunization (1 of 2) 2018 SARS-COV-2 Immunization (1 - ) 05/12/2024 Influenza Immunization (#1) 05/12/202501/2020, 11/03/2012 Respiratory Syncytial Virus (RSV) Immunization (Adult) (1 - 1-dose 75+ series) 2043 TdaP Immunization Completed 02/14/2019 Human Papillomavirus (HPV) Immunization Aged Out No longer eligible b ased on patient's age to complete this topic Meningococcal Immunization (ACWY) Aged Out No longer eligible b ased on patient's age to complete this topic Rotavirus Immunization Aged Out No lo nger eligible based on patient's age to complete this topic Insurance [employer] Care Teams Treasury Representative Relationship Specialty Start Date End Date Provider, None ID PCP - General 06/12/24
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
--- OUTSIDE RECORDS SUMMARY | 2025-04-14 10:13 | XMS_ITS | Encounter Summary ---
Author Organization [facility] Address [address] [place], [place] [address] [address] Care Team Providers Care Electronics Tester Name Role Phone Cortney Hedrick MD Unavailable [phone] Wilmer Li MD Primary Care Provider [phone] Kristi Marvin RN Unavailable [phone] Encounter Details Date Type Department Care [...] on file Legal Sex Female 4:23 AM ACCESSIBILITY LIFT TECHNICIAN Gender Identity Not on file Sexual Orientation Not on file Occupation Industry Job Start Date Job End Date DISABLED Not on file Not on file Not on file documented as of this encounter Plan of Treatment Not on file documented as of this encounter Visit Diagnoses Not on filedocumented in this encounter Care Teams Electronics Tester Relationship Specialty Start Date End Date Wilmer Li MD [address] [place] [id number] PCP - General Internal Medicine 06/06/12 Cortney Hedrick MD Orthopedic Surgery 06/06/12 Kristi Marvin RN Escapement Maker 10/28/15 documented as of this encounter
--- OUTSIDE RECORDS SUMMARY | 2025-04-14 10:13 | XMS_ITS | Encounter Summary ---
Author Organization [facility] Address [address] [place], [place] [address] [address] Care Team Providers Care Magento Web Developer Name Role Phone Cortney Hedrick MD Unavailable [phone] Wilmer Li MD Primary Care Provider [phone] Kristi Marvin RN Unavailable [phone] Encounter Details Date Type Department Care [...] on file Legal Sex Female 4:23 AM COMPUTER PROGRAMMER Gender Identity Not on file Sexual Orientation Not on file Occupation Industry Job Start Date Job End Date DISABLED Not on file Not on file Not on file documented as of this encounter Plan of Treatment Not on file documented as of this encounter Visit Diagnoses Not on filedocumented in this encounter Care Teams Magento Web Developer Relationship Specialty Start Date End Date Wilmer Li MD [address] [place] [phone] PCP - General Internal Medicine 06/06/12 Cortney Hedrick MD Orthopedic Surgery 06/06/12 Kristi Marvin RN Principal Java Software Engineer 10/28/15 documented as of this encounter
--- OUTSIDE RECORDS SUMMARY | 2025-04-14 10:13 | XMS_ITS | Clinical Summary ---
Author Organization [facility] [employer] Address [facility] [facility] [place] [address] Care Team Providers Care Produce Sorter Name Role Phone Cortney Hedrick MD Unavailable [phone] Wilmer Li MD Primary Care Provider [phone] Kristi Marvin RN Unavailable [phone] Source Comments [facility],non-owned Affiliates and Associated Physician Practices is amultiple site organization consisting of ambulatory clinics and hospital sitesin [place], [place], [place] and [place]. This disclosure is being madepursuant to the Care Everywhere program and may not contain all information available regarding this patient. Last updated 18.[facility] [employer] Allergies No known active allergies Medications * [...] file Legal Sex Female 4:23 AM COMPUTER NETWORKER Gender Identity Not on file Sexual Orientation [...] season) 2024 DEPRESSION SCREENING 09/11/2024 INFLUENZA VACCINE (#1) 2025 5, 07/15/2014, 11/03/2012 HIB VACCINE Aged Out No [...] this topic Medical Devices Implanted Type Area Driver Retraining Instructor Device Identifier Shelf Expiration Date Model / Serial / Lot Putty Dbm Progenix 5cc Implanted:Qty: 1 on 10/27/2015 by Martni Dahl MD at [facility] Spine Lumbar Spinal [employer] 04/24/2017 [id number] / / [id number] Bone Canc Crush 15cc Implanted:Qty: 1 on 10/27/2015 by Martin aDhl MD at [facility] Spine Lumbar [employer] 05/04/2020 [id number] / / [id number] Corelink Locking Nuts Implanted:Qty: 4 on 10/27/2015 by Martin Dahl MD at [facility] Spine Lumbar [id number] / / Corelink Connectors Implanted:Qty: 4 on 10/27/2015 by Martin Dahl MD at [facility] Spine Lumbar [id number] / / Corelink 6.5 X 45 Screw Implanted:Qty: 4 on 10/27/2015 by Martin Dahl MD at [facility] Spine Lumbar 35128.45 / / Corelink 8mm Cage Implanted:Qty: 1 on 10/27/2015 by Martin Dahl MD at [facility] Spine Lumbar [id number] / / Corelink Curved Saravanan 45mm Implanted:Qty: 2 on 10/27/2015 by Martin Dahl MD at [facility] Spine Lumbar [id number] / / Putty Grft Bone Dbm Progenix 1cc Implanted:Qty: 1 on 05/06/2016 by Martin Dahl MD at [facility] Spine Cervical Spinal [employer] 11/11/2017 [id number] / / [id number] Cage Cerv [place]/C Sys 12 X 12mm Implanted:Qty: 1 on 05/06/2016 by Martin Dahl MD at [facility] Spine Cervical [employer] 05/12/2016 [id number] / / [id number] Description:Plate and screws removed from uuppr level [...] 11:09 AM 11/03/2012 11:42 AM Care Teams Produce Sorter Relationship Specialty Start Date End Date Wilmer Li MD [address] [place] [address] PCP - General Internal Medicine 06/06/12 Cortney Hedrick MD Orthopedic Surgery 06/06/12 Kristi Marvin RN Pipe Organ Mechanic 10/28/15
--- OUTSIDE RECORDS SUMMARY | 2025-04-14 10:13 | XMS_ITS | Encounter Summary ---
Author Organization [facility] Address [address] [place], [place] [address] [address] Care Team Providers Care Linux Security Administrator Name Role Phone Cortney Hedrick MD Unavailable [phone] Wilmer Li MD Primary Care Provider [phone] Kristi Marvin RN Unavailable [phone] Encounter Details Date Type Department Care [...] on file Legal Sex Female 4:23 AM MEAT MOLDER Gender Identity Not on file Sexual Orientation Not on file Occupation Industry Job Start Date Job End Date DISABLED Not on file Not on file Not on file documented as of this encounter Plan of Treatment Not on file documented as of this encounter Visit Diagnoses Not on filedocumented in this encounter Care Teams Linux Security Administrator Relationship Specialty Start Date End Date Wilmer Li MD [address] [place] [phone] PCP - General Internal Medicine 06/06/12 Cortney Hedrick MD Orthopedic Surgery 06/06/12 Kristi Marvin RN Coin Counter And Wrapper 10/28/15 documented as of this encounter
--- OUTSIDE RECORDS SUMMARY | 2025-04-14 10:13 | XMS_ITS | Encounter Summary ---
Author Organization [facility] Healthcare Address [address] [place] [address] Care Team Providers Care Wheel Setter Name Role Phone Asim Clarke NP Primary Care Provider [phone] Reason for Visit * Reason Onset Date Comments Back Pain 03/18/2025 Encounter Details Date Type Department Care Team (Late st Contact Info) Description 03/18/2025 Nurse Triage Family Care at [address] [phone] Asim Clarke NP [address] [place] [address] [address]LDG [address] [facility] [address] [address] Social History Tobacco Use Types Packs/Day Years [...] on file Legal Sex Female 11:53 PM SPORTS OFFICIAL Gender Identity Not on file Sexual Orientation Not on file documented as of this encounter Miscellaneous Notes * Telephone Encounter - Gwen Dick MA - 03/18/2025 4:16 PM CDT Informed pt, she states surgeon office did call her but it was the MA and informed her that the doctor had still not seen her message but they schedule her for an Appt with RENAL DIALYSIS RN tomorrow at 3:30 pm Instructed her if pain becomes worse over night to go to ER, she agreed. * Telephone Encounter - Elo Bunn RN - 03/18/2025 12:15 PM CDT Reason for Conversation Back Pain Background Moraima Sahu calling about severe left back pain since Monday. Pt had back surgery 03/04. Pt bent to wipe and felt a sharp left back pain radiating to knee. Before surgery pain was radiating down both legs. Has not been able to reach surgeon. Did leave a message with surgeons office and did speak with someone but has not heard back. No fever, abdominal pain, dysuria, or hematuria. Pain is constant 10/10. Takes Fischer 10/325 mg bid normally for other pain and it is not helping. Was given oxycodone 5 mg after surgery. Using ice, did take swelling down. The surgeon is Dr Carl Feliciano #[phone]. No office appts available today. Pt does know want to go to . Tasking update to the office for advice and follow up with pt. Home care reviewed. Advised pt to call back if symptoms worsenor with any other concerns/questions. Pt verbalized understanding. Disposition See Today in Office Reason for Disposition SEVERE back pain (e.g., excruciating, unable to do any normal activities) and not improved after pain medicine and CARE ADVICE Protocols Used Back [id number] * Telephone Encounter - Elo Bunn RN - 03/18/2025 12:09 PM CDT Regarding: Severe back pain ----- Message from Regine Dennise sent at 03/18/2025 12:05 PM CDT ----- Symptom Based Call Chief Complaint(s): Severe back pain Duration: Monday What type of symptom(s) is the patient experiencing? Red Flag. Is the patient concerned they are experiencing a medical emergency requiring an ambulance? No Additional Comments: Patient had back surgery on 03/04/25. She said she used to the restroom, wiped and then felt a severe pain her left side and it traveled down her knee. She now feels like she has a sharp , burning sensation in her back. No other pain. She is says if it were numbers it would be a10 in pain. She has tried several times to get a hold of her surgeon and has since Monday and cannot reach him. Does message need to be routed? Yes-Action Needed documented in this encounter Plan of Treatment Not on file documented as of this encounter Visit Diagnoses Not on filedocumented in this encounter Care Teams Wheel Setter Relationship Specialty [place] [id number] [address] PCP - General Family Medicine 12/10/19 documented as of this encounter
--- OUTSIDE RECORDS SUMMARY | 2025-04-14 10:13 | XMS_ITS | Encounter Summary ---
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
== END 2025-04-14 09:47 | disposition home or self-care (01) ==
PROVIDERS: Visit Provider Nurse Practitioner Adult Health
DX: M96.1 Postlaminectomy syndrome, not elsewhere classified (principal); Z98.1 Arthrodesis status
CPT/HCPCS: 72100